=== PATIENT | male | born 1950 | race Caucasian/White ===

== ENCOUNTER 2024-04-21 11:55 | Outpatient (REF) | payer MEDICARE, SELFPAY ==
--- NOTE | ~2024-04-21 | XR_ITS ---
EXAMINATION: XR SHOULDER, RIGHT CLINICAL INFORMATION: Right shoulder pain. COMPARISON: None available. TECHNIQUE: AP and scapular Y views of the right shoulder. FINDINGS: Severe chronic humeral joint space narrowing with prominent bony remodeling. Subchondral cirrhosis and subchondral cystic change with large marginal osteophytes. Moderate acromioclavicular arthritis. Inferior ossified loose body measuring up to 0.6 cm. No acute fracture or dislocation. XR/XR shoulder RT min 2V IMPRESSION: 1. Severe glenohumeral osteoarthritis with prominent bony remodeling. Inferior loose body measuring up to 0.6 cm. 2. Moderate acromioclavicular osteoarthritis. Electronically signed by: Jesus Couch MD 05/18/2024 12:12 PM EDT
== END 2024-04-21 11:56 | disposition home or self-care (01) ==
LOC: HO.HOSX 11:55
PROVIDERS: Visit Provider Orthopaedic Surgery
DX: M25.511 Pain in right shoulder (principal); M19.011 Primary osteoarthritis, right shoulder
CPT/HCPCS: 20610; 73030; J1010

== ENCOUNTER 2024-04-21 13:24 | Outpatient (AMB) | payer OTHER, SELFPAY ==
--- NOTE | 2024-04-21 14:36 | MHC.OFFVIS ---
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 Pt states the pain started years ago with no known injury and has just been progressively getting worse. Pt denies any previous surgeries or injections in his shoulder. He has tried Tylenol and anti-inflammatory medicines which gave minimal relief. He has also done physical therapy exercises which aggravated his pain. Allergies Penicillins Allergy (Intermediate, Verified 04/21/24 14:37) Nausea Medication List - Last Reconciled 04/22/24 by Adrian Chung MD No Known Home Meds Physical Exam Const Other: Well-nourished well-developed very friendly male awake alert and oriented x3 in no acute distress Extrem Other: Bilateral upper extremity examination shows good capillary refill, no skin lesions noted, normal sensation light touch Right shoulder examination shows decreased active and passive range of motion when compared to his left shoulder, 4+ out of 5 strength with supraspinatus testing, palpable crepitus with range of motion, no instability, positive impingement signs Office Procedures Joint Injection/Aspiration Joint Injection/Aspiration Primary Site: right shoulder Prep: site was prepped using aseptic technique Injected: 40 mg of, DepoMedrol and 1% plain lidocaine Procedure: The patient tolerated the procedure well Coding 18741 - Large joint Procedure code (CPT) selection complete Results Reviewed Results Reviewed: X-rays of the patient's right shoulder show moderate to severe glenohumeral joint narrowing, subchondral sclerosis, a type 2 acromion, no acute bony abnormalities Assessment & Plan Assessment & Plan (1) Right shoulder pain: Code(s): M25.511 - Pain in right shoulder Category: Medical Plan Mr. Morataya presents with progressively worsening right shoulder pain and stiffness due to glenohumeral joint arthritis and impingement syndrome. I had a lengthy discussion with the patient regarding the treatment options. The risks and benefits of a right shoulder cortisone injection were discussed at length with the patient. The patient wished to proceed. He tolerated the injection well. Will continue with his home stretching program. He will follow up with me on an as-needed basis should his symptoms not improve over the next few months. I spent 21 minutes in reviewing the patient's records and imaging studies, seeing the patient and documenting in the medical record. Orders: Orders XR shoulder RT min 2V 04/21/24 M25.511 - Pain in right shoulder AMB Joint Injection/Aspiration 04/21/24 M25.511 - Pain in right shoulder Coding Level of Care Code New Pt Level 3 (05122) Diagnoses Right shoulder pain M25.511 CPT Codes Coding - Large joint: 77001 - Large joint ([id number])
== END 2024-04-21 15:01 | disposition home or self-care (01) ==
PROVIDERS: Visit Provider Orthopaedic Surgery
DX: M25.511 Pain in right shoulder (principal)
CPT/HCPCS: 20610; 99203

== ENCOUNTER 2024-05-12 09:25 | Outpatient (REF) | payer MEDICARE, SELFPAY ==
--- NOTE | ~2024-05-12 | XR_ITS ---
EXAMINATION: XR KNEE, RIGHT CLINICAL INFORMATION: Right knee pain. COMPARISON: None available. TECHNIQUE: Three views of the right knee. FINDINGS: Severe medial compartment joint space narrowing with bony remodeling and subchondral sclerosis. Tricompartmental marginal osteophytes. Medial and lateral compartment chondrocalcinosis. Medial ossified loose bodies measuring 0.7 and 0.4 cm. Moderate joint effusion. Atherosclerotic calcifications. No fracture or dislocation. XR/XR knee RT 3V IMPRESSION: 1. Tricompartmental osteoarthritis, most severe within the medial compartment. 2. Medial and lateral compartment chondrocalcinosis. Medial and lateral ossified loose bodies. Moderate joint effusion. Electronically signed by: Jesus Couch MD 05/18/2024 12:10 PM EDT
== END 2024-05-12 09:26 | disposition home or self-care (01) ==
LOC: HO.HOSX 09:25
PROVIDERS: Visit Provider Orthopaedic Surgery
DX: M25.561 Pain in right knee (principal); M17.11 Unilateral primary osteoarthritis, right knee
CPT/HCPCS: 20610; 73562; J1010

== ENCOUNTER 2024-05-12 12:55 | Outpatient (AMB) | payer OTHER, SELFPAY ==
--- NOTE | 2024-05-12 13:37 | MHC.OFFVIS ---
Intake Visit Reasons: New prob- Right Knee pain Intake Note: Mr. Morataya is a 74-year-old male who presents with complaints of progressively worsening right knee pain. The patient did undergo left total knee replacement surgery several years ago performed by another provider. He reports minimal discomfort in his left knee. He describes his right knee pain as sharp and severe in nature. His right knee pain has gotten worse over the last few years in spite of continued non operative treatments. He has tried Tylenol, anti-inflammatory medicines and topical creams which gave him minimal relief. He denies any locking or giving way. He has done physical therapy exercises which aggravated his pain. He wishes to hold off on right total knee replacement surgery for as long as possible. Allergies Penicillins Allergy (Intermediate, Verified 05/12/24 13:49) Nausea Medication List - Last Reconciled 05/12/24 by Adrian Chung MD No Known Home Meds [facility] Surgical History (Updated 05/12/24 @ 13:55 by Lizet Mauricio Anson) History of left knee replacement Physical Exam Const Other: Well-nourished well-developed very friendly male awake alert and oriented x3 in no acute distress Extrem Other: Bilateral lower extremity examination shows good capillary refill, no skin lesions noted, normal sensation light touch Right knee examination shows a minimal effusion, palpable crepitus with range of motion, pain with range of motion, range of motion from -3 degrees to 115 degrees, no instability Office Procedures Joint Injection/Aspiration Joint Injection/Aspiration Primary Site: right knee Prep: site was prepped using aseptic technique Injected: 40 mg of, DepoMedrol and 1% plain lidocaine Procedure: The patient tolerated the procedure well Coding 95818 - Large joint Procedure code (CPT) selection complete Results Reviewed Results Reviewed: X-rays of the patient's right knee show severe degenerative joint disease with joint space narrowing, subchondral sclerosis, osteophyte formation, no acute bony abnormalities Assessment & Plan Assessment & Plan (1) Arthritis of right knee: Code(s): M17.11 - Unilateral primary osteoarthritis, right knee Category: Medical Plan Mr. Morataya presents with progressively worsening right knee pain due to osteoarthritis. I had a lengthy discussion with the patient regarding the treatment options. The risks and benefits of a right knee cortisone injection were discussed at length with the patient. The patient wished to proceed. He tolerated the injection well. He will continue with his activity modifications. He will contact me prior to his follow-up appointment in 3 months should any questions or concerns arise. Feel free to call me at any time should questions regarding his orthopedic management arise. I spent 21 minutes in reviewing the patient's records and imaging studies, seeing the patient and documenting in the medical record. Orders: Orders XR knee RT 3V 05/12/24 M25.561 - Pain in right knee AMB Joint Injection/Aspiration 05/12/24 M17.11 - Unilateral primary osteoarthritis, right knee Coding Level of Care Code Est Pt Level 3 (08253) Complex EM visit Add On G2211 Diagnoses Arthritis of right knee M17.11 CPT Codes Coding - 34926 Large joint: 38107 - Large joint ([id number])
== END 2024-05-12 14:43 | disposition home or self-care (01) ==
PROVIDERS: PCP Internal Medicine; Visit Provider Orthopaedic Surgery
DX: M17.11 Unilateral primary osteoarthritis, right knee (principal)
CPT/HCPCS: 20610; 99213

== ENCOUNTER 2024-08-29 10:59 | Outpatient (AMB) | payer MEDICARE, SELFPAY ==
--- NOTE | 2024-08-29 11:03 | MHC.OFFVIS ---
Vital Signs 08/29/24 11:21 Height 5 ft 7 in Weight 205 lb BMI 32.1 Intake Visit Reasons: Right knee pain Intake Note: Adolfo is a 74 year old male who presents with complaints of progressively worsening right knee pain. He describes his pain as sharp and severe in nature. He has had cortisone injections which gave him minimal relief. He has not had a viscosupplementation injection. He has failed the last 3 months of conservative treatment which has consisted of a cortisone injection, physical therapy exercises, topical creams, Tylenol and anti-inflammatory medicines. The patient states that at this point his right knee pain is interfering with his activities of daily living and his ability to sleep well through the night. The patient is considering undergoing right total knee replacement surgery next year if he continues to fail non operative treatments. Allergies Penicillins Allergy (Intermediate, Verified 08/29/24 11:03) Nausea Medication List - Last Reconciled 08/29/24 by Adrian Chung MD No Known Home Meds [facility] Surgical History (Updated 05/12/24 @ 13:55 by NANCY Toledo) History of left knee replacement Physical Exam Vital Signs: BMI result Body Mass Index 32.1 Const Other: Well-nourished well-developed very friendly male awake alert and oriented x3 in no acute distress Extrem Other: Bilateral lower extremity examination shows good capillary refill, no skin lesions noted, normal sensation light touch Right knee examination shows a minimal effusion, palpable crepitus with range of motion, pain with range of motion, range of motion from -3 degrees to 115 degrees, no instability Results Reviewed Results Reviewed: X-rays of the patient's right knee taken previously show joint space narrowing, subchondral sclerosis, no acute bony abnormalities Assessment & Plan Assessment & Plan (1) Right knee pain: Code(s): M25.561 - Pain in right knee Category: Medical (2) Osteoarthritis of right knee: Code(s): M17.11 - Unilateral primary osteoarthritis, right knee Category: Medical Plan Mr. Morataya presents with progressively worsening right knee pain due to osteoarthritis. I had a lengthy discussion with the patient regarding the treatment options. He wishes to hold off on total knee replacement surgery for now. He has had cortisone injections in the past. The most recent injection gave him no relief. I will see whether or not the patient's insurance company will cover a viscosupplementation injection. I will see him back once the injection is available. If he fails continued non operative treatments we will further discuss the risks and benefits of right total knee replacement surgery. Feel free to call me at any time should questions regarding his orthopedic management arise. I spent 20 minutes in reviewing the patient's records and imaging studies, seeing the patient and documenting in the medical record. Coding Level of Care Code Est Pt Level 3 (63315) Complex EM visit Add On G2211 Diagnoses Right knee pain M25.561 Osteoarthritis of right knee M17.11
[2024-08-29 11:21] VITALS: BMI 32.1
== END 2024-08-29 11:47 | disposition home or self-care (01) ==
PROVIDERS: PCP Internal Medicine; Visit Provider Orthopaedic Surgery
DX: M25.561 Pain in right knee (principal); M17.11 Unilateral primary osteoarthritis, right knee
CPT/HCPCS: 99213; G2211

== ENCOUNTER → 2024-08-29 10:59 | Outpatient (BNVA) | payer MEDICARE, SELFPAY | PROVIDERS: PCP Internal Medicine; Visit Provider Orthopaedic Surgery | DX: M25.561 Pain in right knee (principal); M17.11 Unilateral primary osteoarthritis, right knee | CPT/HCPCS: 99212 ==

== ENCOUNTER 2024-09-12 10:32 | Outpatient (AMB) | payer MEDICARE, SELFPAY ==
[2024-09-12 10:37] VITALS: BMI 32.1
--- NOTE | 2024-09-12 10:37 | A.OFFVIS_ITS ---
Vital Signs 09/12/24 10:37 Height 5 ft 7 in Weight 205 lb BMI 32.1 Intake Visit Reasons: Right shoulder pain Intake Note: Adolfo is a 74 year old male who presents with complaints of progressively worsening right shoulder pain. He describes his pain as sharp in nature. Most of the pain is along the lateral aspect of his shoulder. He has had cortisone injections in the past which gave him fairly good relief. He has done physical therapy exercises which aggravated his pain. He has also tried Tylenol and anti-inflammatory medicines which gave him minimal relief. Wishes to hold off on right shoulder surgery for as long as possible. Allergies Penicillins Allergy (Intermediate, Verified 09/12/24 10:38) Nausea Medication List - Last Reconciled 09/12/24 by Adrian Chung MD No Known Home Meds [facility] Surgical History (Updated 05/12/24 @ 13:55 by NANCY Toledo) History of left knee replacement Physical Exam Vital Signs: BMI result Body Mass Index 32.1 Const Other: Well-nourished well-developed very friendly male awake alert and oriented x3 in no acute distress Extrem Other: Bilateral upper extremity examination shows good capillary refill, no skin lesions noted, normal sensation light touch Right shoulder examination shows decreased range of motion when compared to his left shoulder, 4+ out of 5 strength with supraspinatus testing, positive impingement signs, no instability Office Procedures AMB Joint Injection/Aspiration Joint Injection/Aspiration Primary Site: right shoulder Prep: site was prepped using aseptic technique Injected: 40 mg of, DepoMedrol and 1% plain lidocaine Procedure: The patient tolerated the procedure well Coding 78861 - Large joint Procedure code (CPT) selection complete Assessment & Plan Assessment & Plan (1) Right shoulder pain: Code(s): M25.511 - Pain in right shoulder Category: Medical (2) Arthritis of right shoulder region: Code(s): M19.011 - Primary osteoarthritis, right shoulder Category: Medical Plan Mr. Morataya presents with right shoulder pain due to impingement syndrome and glenohumeral joint arthritis. The risks and benefits of a right shoulder cortisone injection were discussed at length with the patient. The patient wished to proceed. He tolerated the injection well. He will continue with his home stretching program. Will contact me prior to his follow-up appointment in 3 months should any questions or concerns arise. Feel free to call me at any time should questions regarding his orthopedic management arise. I spent 20 minutes in reviewing the patient's records and imaging studies, seeing the patient and documenting in the medical record. Orders: Orders AMB Joint Injection/Aspiration Today M19.011 - Primary osteoarthritis, right shoulder Coding Level of Care Code Est Pt Level 3 (97296) Complex EM visit Add On G2211 Diagnoses Right shoulder pain M25.511 Arthritis of right shoulder region M19.011 CPT Codes Coding - 31449 Large joint: 44886 - Large joint ([id number])
== END 2024-09-12 11:21 | disposition home or self-care (01) ==
PROVIDERS: PCP Internal Medicine; Visit Provider Orthopaedic Surgery
DX: M19.011 Primary osteoarthritis, right shoulder (principal)
CPT/HCPCS: 20610; 99213

== ENCOUNTER → 2024-09-12 10:32 | Outpatient (BNVA) | payer MEDICARE, SELFPAY | PROVIDERS: PCP Internal Medicine; Visit Provider Orthopaedic Surgery | DX: M25.511 Pain in right shoulder (principal); M19.011 Primary osteoarthritis, right shoulder | CPT/HCPCS: 20610; 99212; J1010; J2003 ==

== ENCOUNTER 2024-09-27 12:19 | Outpatient (AMB) | payer MEDICARE, SELFPAY ==
--- NOTE | 2024-09-27 12:41 | A.OFFVIS_ITS ---
Vital Signs 09/27/24 12:44 Height 5 ft 7 in Weight 208 lb BMI 32.6 Intake Visit Reasons: Right knee Euflexxa Gel Injection #1 Intake Note: Adolfo is a 74 year old male who presents with complaints of progressively worsening right knee pain. He describes his pain as sharp in nature. His pain has gotten worse over the last few years in spite of continued non operative treatments. He has had cortisone injections in the past which gave him minimal relief. He has failed the last 3 months of conservative treatment which has included Tylenol and anti-inflammatory medicines as well as physical therapy exercises. He wishes to hold off on surgery for as long as possible. Allergies Penicillins Allergy (Intermediate, Verified 09/27/24 12:45) Nausea Medication List - Last Reconciled 09/28/24 by Adrian Chung MD No Known Home Meds [facility] Surgical History (Updated 05/12/24 @ 13:55 by Lizet Mauricio Anson) History of left knee replacement Physical Exam Vital Signs: BMI result Body Mass Index 32.6 Const Other: Well-nourished well-developed very friendly male awake alert and oriented x3 in no acute distress Extrem Other: Bilateral lower extremity examination shows good capillary refill, no skin lesions noted, normal sensation light touch Right knee examination shows a minimal effusion, palpable crepitus with range of motion, pain with range of motion, no instability Office Procedures AMB Joint Injection/Aspiration Joint Injection/Aspiration Primary Site: right knee Prep: site was prepped using aseptic technique Injected: 20 mg of (Euflexxa viscosupplementation) and 1% plain lidocaine Procedure: The patient tolerated the procedure well Coding 90190 - Large joint Procedure code (CPT) selection complete Results Reviewed Results Reviewed: X-rays of the patient's right knee taken previously show joint space narrowing, subchondral sclerosis, no acute bony abnormalities Assessment & Plan Assessment & Plan (1) Osteoarthritis of right knee: Code(s): M17.11 - Unilateral primary osteoarthritis, right knee Category: Medical Plan Mr. Morataya presents with right knee pain due to osteoarthritis. The risks and benefits of a series of Euflexxa viscosupplementation injections were discussed at length with the patient. The patient wishes to proceed. He tolerated the 1st injection well. He will follow up next week as scheduled. Feel free to call me at any time should questions regarding his orthopedic management arise. I spent 22 minutes in reviewing the patient's records and imaging studies, seeing the patient and documenting in the medical record. Orders: Orders AMB Joint Injection/Aspiration 09/27/24 M17.11 - Unilateral primary osteoarthri tis, right knee Coding Level of Care Code Est Pt Level 3 (71872) Complex EM visit Add On G2211 Diagnoses Osteoarthritis of right knee M17.11 CPT Codes Coding - 91018 Large joint: 66176 - Large joint ([id number])
[2024-09-27 12:44] VITALS: BMI 32.6
== END 2024-09-27 13:01 | disposition home or self-care (01) ==
PROVIDERS: PCP Internal Medicine; Visit Provider Orthopaedic Surgery
DX: M17.11 Unilateral primary osteoarthritis, right knee (principal)
CPT/HCPCS: 20610; 99213

== ENCOUNTER → 2024-09-27 12:19 | Outpatient (BNVA) | payer MEDICARE, SELFPAY | PROVIDERS: PCP Internal Medicine; Visit Provider Orthopaedic Surgery | DX: M17.11 Unilateral primary osteoarthritis, right knee (principal) | CPT/HCPCS: 20610; 99212; J2003; J7323 ==

== ENCOUNTER → 2024-10-04 12:02 | Outpatient (BNVA) | payer MEDICARE, SELFPAY | PROVIDERS: PCP Internal Medicine; Visit Provider Orthopaedic Surgery | DX: M17.11 Unilateral primary osteoarthritis, right knee (principal) | CPT/HCPCS: 20610; J2003; J7323 ==

== ENCOUNTER → 2024-10-11 11:56 | Outpatient (BNVA) | payer MEDICARE, SELFPAY | PROVIDERS: PCP Internal Medicine; Visit Provider Orthopaedic Surgery | DX: M17.11 Unilateral primary osteoarthritis, right knee (principal) | CPT/HCPCS: 20610; J2003; J7323 ==

== ENCOUNTER → 2024-12-16 08:16 | Outpatient (BNVA) | payer MEDICARE, SELFPAY | PROVIDERS: PCP Internal Medicine | DX: Z01.818 Encounter for other preprocedural examination (principal) ==

== ENCOUNTER 2024-12-19 | Outpatient (REF) | payer MEDICARE, SELFPAY ==
--- OUTSIDE RECORDS SUMMARY | 2024-11-16 10:10 | XMS_ITS | Encounter Summary ---
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 He is , lives by himself [...] Care Team (Late st Contact Info) Description 07/04/2025 1:00 PM EDT Office Visit [facility] Hematology Oncology [address] [place] [address] Jennifer Millard MD [address] [place] [address] documented as of this encounter Procedures Procedure Name Priority Date/Time Associated Diagnosis Comments ..MISCELLANEOUS REFERENCE LAB TEST 07/04/2024 documented in this encounter Results * Miscellaneous reference lab test (07/04/2024) us Provider Onbase LAB BLOOD ORDERABLES Final Re sult documented in this encounter Visit Diagnoses Not on filedocumented in this encounter Care Teams Car Driver Relationship Specialty Start Date End Date Juanita Sunshine MD [address] [place] [phone] PCP - General Internal Medicine 07/04/21 documented as of this encounter
--- OUTSIDE RECORDS SUMMARY | 2024-11-16 10:10 | XMS_ITS | Clinical Summary ---
Author Organization [facility] [place] [address] Phone Care Team Providers Care Golf Club Weigher Name Role Phone Juanita Sunshine MD Primary Care Provider [phone] Social History Tobacco Use Types Packs/Day Years Used Date Smoking Tobacco: Never Assessed Sex and Gender Information Value Date Recorded Sex Assigned at Not on file Legal Sex Male 6:05 PM EST Gender Identity Not on file Sexual Orientation Not on file Obstetrics History Last Filed Vital Signs Vital Sign Reading [...] Mass Index 31.17 08/25/2023 1:12 PM EST Plan of Treatment Upcoming Encounters Date Type Department Care Team (Late st Contact Info) Description 07/04/2025 1:00 PM EDT Office Visit [facility] Hematology Oncology [address] [place] [phone] Jennifer Millard MD [address] [place] [address] Health Maintenance Due Date Last Done Comments COVID-19 Vaccine (#1) 1953 DTaP,Tdap,and Td Vaccines (1 - Tdap) 1967 Pneumococcal Vaccine: 50+ Ye ars (1 of 2 - PCV) 1967 Zoster Vaccines (1 of 2) 1967 Cholesterol Screening (Lipid Panel) 08/09/2022 Depression Screening 08/09/2022 Falls Risk Assessment 08/09/2022 Hepatitis C Screening 08/09/2022 Medicare Annual Wellness Visit 08/09/2022 Social Influencers of Health Screening 08/09/2022 RSV Immunization Patients 60 + Years Old (1 - 1-dose 75+ series) 2023 Influenza Vaccine (#1) 2024 HIB Vaccines Aged Out No longer eligi ble based on patient's age to complete this topic HPV Vaccines Aged Out No longer eligi ble based on patient's age to complete this topic Hepatitis A Vaccines Aged Out No long er eligible based on patient's age to complete this topic Hepatitis B Vaccines Aged Out No long er eligible based on patient's age to complete this topic IPV Vaccines Aged Out No longer eligi ble based on patient's age to complete this topic MMR Vaccines Aged Out No longer eligi ble based on patient's age to complete this topic Meningococcal ACWY Vaccine Aged Out N o longer eligible based on patient's age to complete this topic Meningococcal B Vacine Aged Out No lo nger eligible based on patient's age to complete this topic RSV Immunization Patients Un kenyatta 20 months Aged Out No longer eligible b ased on patient's age to complete this topic Varicella Vaccines Aged Out No longer eligible based on patient's age to complete this topic Insurance [employer] Care Teams Golf Club Weigher Relationship Specialty Start Date End Date Juanita Sunshine MD [address] [place] [phone] PCP - General Internal Medicine 07/04/21
--- OUTSIDE RECORDS SUMMARY | 2024-11-16 10:10 | XMS_ITS | Clinical Summary ---
Author Organization [facility] Address [address] [place] [address] Care Team Providers Care Ham Clerk Name Role Phone Juanita Sunshine MD Primary Care Provider [phone] Allergies Active Allergy Reactions Criticality Noted Date Comments Penicillins 07/04/2024 Medications No known medications Active Problems No known active problems Social History Tobacco Use Types Packs/Day Years Used Date Smoking Tobacco: Never Assessed Sex and Gender Information Value Date Recorded Sex Assigned at Male 02/24/2023 3:10 PM EDT Gender Identity Not on file Sexual Orientation Not on file Job Start Date Occupation Industry Not on file Not on file Not on file Last Filed Vital Signs Vital Sign Reading Time Taken Comments Blood Pressure 143/83 07/04/2024 1:05 PM EDT Pulse 74 07/04/2024 1:05 PM EDT Temperature 36.6 ??C (97.8 ??F) 07/04/2024 1:05 PM ED T Respiratory Rate - - Oxygen Saturation 97% 07/04/2024 1:05 PM EDT Inhaled Oxygen Concentration - - Weight 93 kg (205 lb) 07/04/2024 1:05 PM EDT Height 172.7 cm (5' 8 ) 08/25/2023 1:12 PM EST Body Mass Index 31.17 08/25/2023 1:12 PM EST Plan of Treatment Health Maintenance Due Date Last Done Comments Hepatitis C Screening 1950 COVID-19 Vaccine (#1) 1953 Depression Screening 1960 Preventative Health Evaluation 1966 DTap / Tdap / Td (1 - Tdap) 1967 Shingrix-Zoster Vaccine (1 o f 2) 1967 Fall Risk Assessment 2013 Pneumococcal Vaccine (2 of 2 - PPSV23 or PCV20) 08/01/2019 06/06/2019 RSV Adult > 60+ Yrs or (1 - 1-dose 75+ series) 2023 Influenza Vaccine (#1) 2024 1, 06/29/2019, 06/06/2019 Hepatitis B Vaccines Aged Out No long er eligible based on patient's age to complete this topic RSV Ped < 20 months Aged Out No longe r eligible based on patient's age to complete this topic Care Teams Ham Clerk Relationship Specialty Start Date End Date Juanita Sunshine MD [address] [place] [phone] PCP - General Internal Medicine 02/24/23
[2024-12-19 09:22] VITALS: BP 161/90; PULSE 61; RESP 16; O2SAT 97; BMI 33.2
[2024-12-19 11:56] LABS: MRSA Nasal PCR NEGATIVE (Negative); SA Nasal PCR NEGATIVE (Negative)
--- OUTSIDE RECORDS SUMMARY | 2025-03-03 14:14 | XMS_ITS | Clinical Summary ---
Author Organization [facility] [place] [address] Phone Care Team Providers Care Manager Culture Name Role Phone Juanita Sunshine MD Primary [...] Description 07/04/2025 1:00 PM EDT Office Visit [facility] Hematology Oncology [address] [place] [phone] Jennifer Millard MD [address] [place] [address] Health Maintenance Due Date Last Done Comments [...] topic Insurance [employer] Care Teams Manager Culture Relationship Specialty Start Date End Date Juanita Sunshine MD PCP - General Internal Medicine 07/04/21
== END 2024-12-19 00:01 | disposition home or self-care (01) ==
LOC: HO.PAT
PROVIDERS: Physician Assistant; PCP Family Medicine; Visit Provider Orthopaedic Surgery
DX: M17.11 Unilateral primary osteoarthritis, right knee (principal)
CPT/HCPCS: 87640; 87641

== ENCOUNTER 2025-01-05 08:59 | Outpatient (REF) | payer MEDICARE, SELFPAY ==
--- NOTE | ~2025-01-05 | XR_ITS ---
EXAMINATION: XR PELVIS 1-2 VIEWS HISTORY: M25.559 - Pain in unspecified hip COMPARISON: There are no prior studies for comparison. FINDINGS: Two AP views of the pelvis are submitted. Osseous mineralization is normal. There is no fracture or dislocation. There is severe osteoarthritis of the left hip with joint space narrowing and subchondral cyst formation. There is mild narrowing of the right hip joint. The sacroiliac joints are maintained. There is moderate degenerative disc disease of the lower lumbar spine. A mesh is seen in the left lower quadrant. XR/XR pelvis 1-2V IMPRESSION: Severe osteoarthritis of the left hip. Mild osteoarthritis of the right hip. Electronically signed by: Kody Harmon MD 01/06/2025 08:42 AM EDT
--- OUTSIDE RECORDS SUMMARY | 2025-01-05 09:39 | XMS_ITS | Encounter Summary ---
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 is , lives by himself [...] Description 07/04/2025 1:00 PM EDT Office Visit [facility] Hematology Oncology [address] [place] [address] Jennifer Millard MD [address] [place] [address] documented as of this encounter Procedures Procedure Name Priority Date/Time Associated Diagnosis Comments ..MISCELLANEOUS REFERENCE LAB TEST 07/04/2024 documented in this encounter Results * Miscellaneous reference lab test (07/04/2024) us Provider Onbase LAB BLOOD ORDERABLES Final Re sult documented in this encounter Visit Diagnoses Not on filedocumented in this encounter Care Teams Health Information Administrator Relationship Specialty Start Date End Date Juanita Sunshine MD [address] [place] [phone] PCP - General Internal Medicine 07/04/21 documented as of this encounter
--- OUTSIDE RECORDS SUMMARY | 2025-01-05 09:39 | XMS_ITS | Clinical Summary ---
Author Organization [facility] [place] [address] Phone Care Team Providers Care Electric Relay Tester Name Role Phone Juanita Sunshine MD Primary Care Provider [phone] Social History Tobacco Use Types Packs/Day Years [...] Description 07/04/2025 1:00 PM EDT Office Visit [facility] Hematology Oncology [address] [place] [phone] Jennifer Millard MD [address] [place] [address] Health Maintenance Due Date Last Done Comments [...] Influencers of Health Screening 08/09/2022 RSV Immunization Adult Patie nts (1 - 1-dose 75+ series) 2023 Influenza Vaccine (Season Ended) 2025 HIB Vaccines Aged Out No longer eligi [...] age to complete this topic Meningococcal B Vaccine Aged Out No l onger eligible based on patient's age to complete this topic RSV Immunization Patients Un keynatta 20 months Aged Out No longer eligible b ased on patient's age to complete this topic Varicella Vaccines Aged Out No longer eligible based on patient's age to complete this topic Insurance [employer] Care Teams Electric Relay Tester Relationship Specialty Start Date End Date Juanita Sunshine MD [address] [place] [phone] PCP - General Internal Medicine 07/04/21
--- OUTSIDE RECORDS SUMMARY | 2025-01-05 09:39 | XMS_ITS | Clinical Summary ---
Author Organization [facility] Address [address] [place] [address] Care Team Providers Care Manager Product Support Name Role Phone Juanita Sunshine MD Primary Care Provider [phone] Allergies Active Allergy Reactions Criticality Noted Date [...] age to complete this topic Care Teams Manager Product Support Relationship Specialty Start Date End Date Juanita Sunshine MD [address] [place] [phone] PCP - General Internal Medicine 02/24/23
== END 2025-01-05 09:00 | disposition home or self-care (01) ==
LOC: HO.HOSX 08:59
PROVIDERS: Visit Provider Orthopaedic Surgery
DX: M25.552 Pain in left hip (principal); M16.12 Unilateral primary osteoarthritis, left hip; Z86.718 Personal history of other venous thrombosis and embolism
CPT/HCPCS: 72170; 99212

== ENCOUNTER 2025-01-05 10:30 | Outpatient (AMB) | payer MEDICARE, SELFPAY ==
[2025-01-05 10:55] VITALS: BMI 32.6
--- NOTE | 2025-01-05 10:55 | A.OFFVIS_ITS ---
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 This is a patient of Dr. Dumont who is scheduled for a Right TKA 01/16/25. Patient reports that he has has left hip pain ongoing since Fall 2023. His pain is felt in the groin, he explains that this pain is worse than his pain in the knee. Pain is felt with ambulation and feels better at rest. He takes Ibuprofen which helped, but he had to stop for upcoming surgery. He is currently taking Acetaminophen instead which is helping. 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 This is a patient of Dr. Dumont who is scheduled for a Right TKA 01/16/25. Patient reports that he has has left hip pain ongoing since Fall 2023. His pain is felt in the groin, he explains that this pain is worse than his pain in the knee. Pain is felt with ambulation and feels better at rest. He takes Ibuprofen which helped, but he had to stop for upcoming surgery. He is currently taking Acetaminophen instead which is helping. He feels he can not get into and out of an automobile or walk long distances because of his left groin. His right knee is intermittently painful but the less he does the less it hurts. [facility] Medical History (Updated 01/05/25 @ 17:01 by Gus Sims MD) Postoperative nausea Cholelithiasis Aneurysm of gastroduodenal artery Lung nodule HTN (hypertension) Hx of deep venous thrombosis Bilateral shoulder pain Hyperlipidemia Low grade B-cell lymphoma Diverticulosis Self-catheterizes urinary bladder GERD (gastroesophageal reflux disease) BPH (benign prostatic hyperplasia) Anxiety and depression Numbness Osteoarthritis Surgical History (Updated 12/19/24 @ 09:21 by Joy Miranda RN) History of uvulectomy Hx of colonoscopy Hx of umbilical hernia repair (~1994) History of left knee replacement Social History (Updated 12/19/24 @ 10:13 by Joy Miranda RN) Household Members: None Housing: House Are you a primary behavioral health care manager to a significant other at home: No Do you presently have visiting nurse or other home services: No 75 years or older and lives alone: Yes Comment: aware of trip hazard Patient Tobacco Use Status: Never used Tobacco e-Cigarette/Vaping Use: Never Used Use of substances other than those prescribed or required for medical reasons: No Advance Directives: No Advance Directives Information Provided: Yes Advance Directives on File: No Healthcare Proxy: No Current occupational status: employed 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 He has a Trendelenburg gait on the left with severe limp. His right knee is tender to palpation medial compartment. Results Reviewed Results Reviewed: I personally reviewed relevant radiographs. There is moderate to severe left hip osteoarthritis with loss of joint space and subchondral sclerosis. Assessment & Plan Assessment & Plan (1) Osteoarthritis of left hip: Code(s): M16.12 - Unilateral primary osteoarthritis, left hip Category: Medical Plan: This is a 74-year-old gentleman with left hip arthritis. This is been causing him pain for almost 9 months. He feels he is unable to walk comfortably. He states quality of his life is diminished. He has a history of DVT and low-grade lymphoma so he is at risk for blood clots but I discussed with him the other risks surgery. Those risks include, but are not limited to, the risk of infection, fracture, dislocation, aseptic loosening as well as medical complications associated with surgery including blood clots, pulmonary emboli as well as pneumonia, urinary tract infections. After extended discussion with him and with Dr. Chung I think it is reasonable to proceed forward with a left hip replacement prior to knee arthroplasty. It is his left hip that is significantly affecting his daily life at this time and I think he would benefit from the procedure. He can barely walk and he agrees with our assessment and plan. He has been cleared medically to undergo a right knee replacement. We will perform a left hip replacement instead and then he will see Dr. Palma when he has recovered from that to discuss right knee replacement. (2) Hx of deep venous thrombosis: Comment: of iliac vein Code(s): Z86.718 - Personal history of other venous thrombosis and embolism Category: Medical Plan: Orders: Orders XR pelvis 1-2V Today M25.559 - Pain in unspecified hip Coding Level of Care Code Est Pt Level 4 (92259) Diagnoses Osteoarthritis of left hip M16.12 Hx of deep venous thrombosis Z86.718
--- OUTSIDE RECORDS SUMMARY | 2025-01-05 12:00 | XMS_ITS | Clinical Summary ---
Author Organization [facility] Address [address] [place] [address] Care Team Providers Care Finisher Accordion Name Role Phone Juanita Sunshine MD Primary Care Provider [phone] Allergies Active Allergy Reactions Criticality Noted Date [...] age to complete this topic Care Teams Finisher Accordion Relationship Specialty Start Date End Date Juanita Sunshine MD [address] [place] [phone] PCP - General Internal Medicine 02/24/23
--- OUTSIDE RECORDS SUMMARY | 2025-01-05 12:00 | XMS_ITS | Clinical Summary ---
Author Organization [facility] [place] [address] Phone Care Team Providers Care Candlemaker Name Role Phone Juanita Sunshine MD Primary Care Provider [phone] Social History Tobacco Use Types Packs/Day Years [...] Description 07/04/2025 1:00 PM EDT Office Visit [facility] Hematology Oncology [address] [place] [phone] Jennifer Millard MD [address] [place] [address] Health Maintenance Due Date Last Done Comments [...] topic Insurance [employer] Care Teams Candlemaker Relationship Specialty Start Date End Date Juanita Sunshine MD [address] [place] [phone] PCP - General Internal Medicine 07/04/21
--- OUTSIDE RECORDS SUMMARY | 2025-01-05 12:00 | XMS_ITS | Encounter Summary ---
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 , lives by himself [...] Description 07/04/2025 1:00 PM EDT Office Visit [facility] Hematology Oncology [address] [place] [address] Jennifer Millard MD [address] [place] [address] documented as of this encounter Procedures Procedure Name Priority Date/Time Associated Diagnosis Comments ..MISCELLANEOUS REFERENCE LAB TEST 07/04/2024 documented in this encounter Results * Miscellaneous reference lab test (07/04/2024) us Provider Onbase LAB BLOOD ORDERABLES Final Re sult documented in this encounter Visit Diagnoses Not on filedocumented in this encounter Care Teams Nibbler Operator Relationship Specialty Start Date End Date Juanita Sunshine MD [address] [place] [phone] PCP - General Internal Medicine 07/04/21 documented as of this encounter
== END 2025-01-05 11:31 | disposition home or self-care (01) ==
LOC: HO.HOS 10:30
PROVIDERS: PCP Internal Medicine; Visit Provider Orthopaedic Surgery
DX: M16.12 Unilateral primary osteoarthritis, left hip (principal); Z86.718 Personal history of other venous thrombosis and embolism
CPT/HCPCS: 99214

== ENCOUNTER → 2025-01-05 10:36 | Outpatient (BNV) | payer MEDICARE, SELFPAY | PROVIDERS: Visit Provider Radiology Diagnostic Radiology | DX: M25.551 Pain in right hip (principal) | CPT/HCPCS: 72170 ==

== ENCOUNTER 2025-01-12 08:16 | Outpatient (AMB) | payer MEDICARE, SELFPAY ==
--- OUTSIDE RECORDS SUMMARY | 2025-01-12 08:34 | XMS_ITS | Clinical Summary ---
Author Organization [facility] [place] [address] Phone Care Team Providers Care Edge Blacker Name Role Phone Juanita Sunshine MD Primary Care Provider [phone] Social History Tobacco Use Types Packs/Day Years [...] Description 07/04/2025 1:00 PM EDT Office Visit [facility] Hematology Oncology [address] [place] [phone] Jennifer Millard MD [address] [place] [address] Health Maintenance Due Date Last Done Comments [...] topic Insurance [employer] Care Teams Edge Blacker Relationship Specialty Start Date End Date Juanita Sunshine MD [address] [place] [phone] PCP - General Internal Medicine 07/04/21
--- OUTSIDE RECORDS SUMMARY | 2025-01-12 08:34 | XMS_ITS | Clinical Summary ---
Author Organization [facility] Address [address] [place] [address] Care Team Providers Care Infrastructure Technician Name Role Phone Juanita Sunshine MD Primary Care Provider [phone] Allergies Active Allergy Reactions Criticality Noted Date [...] age to complete this topic Care Teams Infrastructure Technician Relationship Specialty Start Date End Date Juanita Sunshine MD [address] [place] [phone] PCP - General Internal Medicine 02/24/23
--- OUTSIDE RECORDS SUMMARY | 2025-01-12 08:34 | XMS_ITS | Encounter Summary ---
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 [...] 07/04/2025 1:00 PM EDT Office Visit [facility] Hematology Oncology [address] [place] [address] Jennifer Millard MD [address] [place] [address] documented as of this encounter Procedures Procedure Name Priority Date/Time Associated Diagnosis Comments ..MISCELLANEOUS REFERENCE LAB TEST 07/04/2024 documented in this encounter Results * Miscellaneous reference lab test (07/04/2024) us Provider Onbase LAB BLOOD ORDERABLES Final Re sult documented in this encounter Visit Diagnoses Not on filedocumented in this encounter Care Teams Press Set Up Person Relationship Specialty Start Date End Date Juanita Sunshine MD [address] [place] [phone] PCP - General Internal Medicine 07/04/21 documented as of this encounter
--- NOTE | 2025-01-12 08:35 | MHC.OFFVIS ---
Vital Signs 01/12/25 08:45 Height 5 ft 7 in Weight 208 lb BMI 32.6 Intake Visit Reasons: Pre-Op: L RAY w/NE 01/17/25 Intake Note: Adolfo is a 74 year old male who presents today for a preoperative left RAY on 01/17/25 NE. Pain management agreement reviewed and signed. Allergies Penicillins Allergy (Intermediate, Verified 01/12/25 08:46) Nausea HPI Comments Details: Mr Morataya presents to the office today for preop visit. He is scheduled for left total hip arthroplasty with Dr. Sims. He continues to have ongoing pain and difficulty with ambulation in the left hip, which is affecting his quality of life; therefore, he has elected to move forward with surgery. He is at an increased risk for DVT due to Abd. aneurysm and h/o DVT H/o Lovenox with previous TKA [facility] Medical History (Updated 01/05/25 @ 17:01 by Gus Sims MD) Postoperative nausea Cholelithiasis Aneurysm of gastroduodenal artery Lung nodule HTN (hypertension) Hx of deep venous thrombosis Bilateral shoulder pain Hyperlipidemia Low grade B-cell lymphoma Diverticulosis Self-catheterizes urinary bladder GERD (gastroesophageal reflux disease) BPH (benign prostatic hyperplasia) Anxiety and depression Numbness Osteoarthritis Surgical History History of uvulectomy Hx of colonoscopy Hx of umbilical hernia repair (~1994) History of left knee replacement Social History Household Members: None Housing: House Are you a primary home care associate to a significant other at home: No Do you presently have visiting nurse or other home services: No 75 years or older and lives alone: Yes Comment: aware of trip hazard Patient Tobacco Use Status: Never used Tobacco e-Cigarette/Vaping Use: Never Used Current occupational status: employed 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 He has positive impingement and positive Stinchfield test on the left. He has a Trendelenburg gait on the left with severe limp. His right knee is tender to palpation medial compartment. Results Reviewed Results Reviewed: Xrays were obtained in the office today and personally reviewed by me of the left hip for surgical planning Assessment & Plan Assessment & Plan (1) Osteoarthritis of left hip: Code(s): M16.12 - Unilateral primary osteoarthritis, left hip Category: Medical Plan: I discussed in detail the procedure and what to expect pre and post operatively. We discussed the risks, benefits and alternatives to the surgery as well as the rehabilitation course. The risks; which include, but are not limited to infection, bleeding, nerve injury, ongoing pain, swelling, and stiffness, perioperative risk of injury to bones and soft tissues, and blood clots. His plan is to D/C home with VNA He was given an order for PT to make an appt after 02/02/25 at a facility closer to home. He will take Lovenox 40mg subQ q24hr x6 weeks for dvt ppx I?ve answered all questions and with their understanding they have consented to move forward with Left total hip arthroplasty with Dr. Sims Orders: Orders XR hip LT min 2V Today M25.552 - Pain in left hip Complete Blood Count Auto Diff Today Z01.818 - Encounter for other preprocedural examination Basic Metabolic Panel Today Z01.818 - Encounter for other preprocedural examination PT Evaluation and Treatment Today Z96.642 - Presence of left artificial hip joint Coding Level of Care Code Est Pt Level 3 (60504) Complex EM visit Add On G2211 Diagnoses Osteoarthritis of left hip M16.12
[2025-01-12 08:45] VITALS: BMI 32.6
== END 2025-01-12 09:39 | disposition home or self-care (01) ==
LOC: HO.HOS 08:17
PROVIDERS: PCP Internal Medicine; Visit Provider Physician Assistant
DX: M16.12 Unilateral primary osteoarthritis, left hip (principal)
CPT/HCPCS: 99024

== ENCOUNTER → 2025-01-12 08:18 | Outpatient (BNV) | payer MEDICARE, SELFPAY | PROVIDERS: Visit Provider Radiology Diagnostic Radiology | DX: M16.12 Unilateral primary osteoarthritis, left hip (principal) | CPT/HCPCS: 73502 ==

== ENCOUNTER 2025-01-12 09:54 | Outpatient (REF) | payer MEDICARE, SELFPAY ==
--- NOTE | ~2025-01-12 | XR_ITS ---
EXAMINATION: XR HIP 2 OR MORE VIEWS LEFT HISTORY: M25.552 - Pain in left hip COMPARISON: Comparison is made with the prior examination of the pelvis dated 01/05/2025. FINDINGS: A single AP view of the pelvis and two views of the left hip are submitted. Osseous mineralization is normal. There is no fracture or dislocation. There is severe osteoarthritis with joint space narrowing and subchondral cyst formation. The soft tissues are unremarkable. There is degenerative disc disease of the lower lumbar spine. XR/XR hip LT min 2V IMPRESSION: Severe osteoarthritis of the left hip. Electronically signed by: Kody Harmon MD 01/12/2025 08:50 AM EDT
--- OUTSIDE RECORDS SUMMARY | 2025-01-17 10:44 | XMS_ITS | Clinical Summary ---
Author Organization [facility] [place] [address] Phone Care Team Providers Care Net Developer Contract Name Role Phone Juanita Sunshine MD Primary Care Provider [phone] Social History Tobacco Use Types Packs/Day Years [...] Description 07/04/2025 1:00 PM EDT Office Visit [facility] Hematology Oncology [address] [place] [phone] Jennifer Millard MD [address] [place] [address] Health Maintenance Due Date Last Done Comments [...] topic Insurance [employer] Care Teams Net Developer Contract Relationship Specialty Start Date End Date Juanita Sunshine MD [address] [place] [phone] PCP - General Internal Medicine 07/04/21
--- OUTSIDE RECORDS SUMMARY | 2025-01-17 10:44 | XMS_ITS | Clinical Summary ---
Author Organization [facility] Address [address] [place] [address] Care Team Providers Care Improvement Coordinator Name Role Phone Juanita Sunshine MD Primary Care Provider [phone] Allergies Active Allergy Reactions Criticality Noted Date [...] age to complete this topic Care Teams Improvement Coordinator Relationship Specialty Start Date End Date Juanita Sunshine MD [address] [place] [phone] PCP - General Internal Medicine 02/24/23
--- OUTSIDE RECORDS SUMMARY | 2025-01-17 10:44 | XMS_ITS | Encounter Summary ---
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 He is , lives by himself [...] Visit [facility] Hematology Oncology [address] [place] [phone] Jennifer Millard MD [address] [place] [address] documented as of this encounter Procedures Procedure Name Priority Date/Time Associated Diagnosis Comments ..MISCELLANEOUS REFERENCE LAB TEST 07/04/2024 documented in this encounter Results * Miscellaneous reference lab test (07/04/2024) us Provider Onbase LAB BLOOD ORDERABLES Final Re sult documented in this encounter Visit Diagnoses Not on filedocumented in this encounter Care Teams Wood Lather Relationship Specialty Start Date End Date Juanita Sunshine MD [address] [place] [phone] PCP - General Internal Medicine 07/04/21 documented as of this encounter
== END 2025-01-12 09:55 | disposition home or self-care (01) ==
LOC: HO.HOSX 09:54
PROVIDERS: Visit Provider Physician Assistant
DX: Z01.818 Encounter for other preprocedural examination (principal); M16.12 Unilateral primary osteoarthritis, left hip; M25.552 Pain in left hip; Z86.718 Personal history of other venous thrombosis and embolism; Z79.01 Long term (current) use of anticoagulants
CPT/HCPCS: 73502; 99212

== ENCOUNTER 2025-01-17 07:36 | Day surgery (SDC) | payer MEDICARE, SELFPAY ==
--- OUTSIDE RECORDS SUMMARY | 2025-01-11 09:21 | XMS_ITS | Encounter Summary ---
Author Organization [facility] Address [address] [place] [address] Care Team Providers Care Concrete Engineer Name Role Phone Juanita Sunshine MD Primary Care Provider [phone] Encounter Details Date Type Department Care Team (Late st Contact Info) Description 07/04/2024 12:43 PM EDT Hospital Encounter TH HISTORIC ENCOUNTERS EASTERN CONVERSION ONLY Jennifer Millard MD [address] [place] [phone] Social History Tobacco Use Types Packs/Day Years [...] 07/04/2024 1:00 PM EDT CHIEF COMPLAINT: Follow-up IDENTIFIER:dAolfo Morataya is a 74 y.o. male. 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 [...] Description 07/04/2025 1:00 PM EDT Office Visit [facility] Hematology Oncology [address] [place] [address] Jennifer Millard MD [address] [place] [address] documented as of this encounter Procedures Procedure Name Priority Date/Time Associated Diagnosis Comments ..MISCELLANEOUS REFERENCE LAB TEST 07/04/2024 documented in this encounter Results * Miscellaneous reference lab test (07/04/2024) us Provider Onbase LAB BLOOD ORDERABLES Final Re sult documented in this encounter Visit Diagnoses Not on filedocumented in this encounter Care Teams Concrete Engineer Relationship Specialty Start Date End Date Juanita Sunshine MD [address] [place] [phone] PCP - General Internal Medicine 07/04/21 documented as of this encounter
--- OUTSIDE RECORDS SUMMARY | 2025-01-11 09:21 | XMS_ITS | Clinical Summary ---
Author Organization [facility] [place] [address] Phone Care Team Providers Care Medical Appointment Clerk Name Role Phone Juanita Sunshine MD Primary Care Provider [phone] Social History Tobacco Use Types Packs/Day Years [...] Description 07/04/2025 1:00 PM EDT Office Visit [facility] Hematology Oncology [address] [place] [phone] Jennifer Millard MD [address] [place] [address] Health Maintenance Due Date Last Done Comments [...] topic Insurance [employer] Care Teams Medical Appointment Clerk Relationship Specialty Start Date End Date Juanita Sunshine MD [address] [place] [phone] PCP - General Internal Medicine 07/04/21
--- OUTSIDE RECORDS SUMMARY | 2025-01-11 09:21 | XMS_ITS | Clinical Summary ---
Author Organization [facility] Address [address] [place] [address] Care Team Providers Care Medical Surgery Nurse Name Role Phone Juanita Sunshine MD Primary Care Provider [phone] Allergies Active Allergy Reactions Criticality Noted Date [...] age to complete this topic Care Teams Medical Surgery Nurse Relationship Specialty Start Date End Date Juanita Sunshine MD [address] [place] [phone] PCP - General Internal Medicine 02/24/23
[2025-01-12 10:08] LABS: MANUAL DIFF FLAG NO
[2025-01-12 10:55] LABS: Basophils Percent Auto 0.3 % (0-2); Eosinophils Absolute Auto 0.1 X10*3/uL (0.0-0.4); Eosinophils Percent Auto 1.4 % (0-4); Hematocrit 43.9 % (42.0-52.0); Hemoglobin 14.2 g/dl (14.0-18.0); Imm Gran Abs Auto 0.04 X10*3/uL (0.00-0.03); Imm Gran Pct Auto 0.4 % (0.0-0.4); Lymphocytes Absolute Auto 1.4 X10*3/uL (1.2-4.9); Lymphocytes Percent Auto 15.1 % (20-40); Mean Corpuscular HGB Conc 32.3 g/dl (31.0-36.0); Mean Corpuscular Volume 83.5 fL (80.0-98.0); Mean Platelet Volume 9.3 fL (9.4-12.4); Monocytes Absolute Auto 0.7 X10*3/uL (0.1-1.2); Neutrophils Absolute Auto 6.9 x10*3/uL (2.0-8.3); Neutrophils Percent Auto 74.8 % (45-73); Platelet Count 312 X10*3/uL (160-400); Red Blood Count 5.26 X10*6/uL (4.60-5.80); White Blood Count 9.3 X10*3/uL (4.8-10.8)
[2025-01-12 11:27] LABS: Anion Gap 12 (12-20); Blood Urea Nitrogen 20 mg/dL (9-16); Calcium 9.3 mg/dL (8.4-10.2); Carbon Dioxide 26 mmol/L (22-29); Chloride 106 mmol/L (96-108); Estimated Glomerular Filt Rate > 60; Glucose Random 87 mg/dL (60-115); Potassium 3.9 mmol/L (3.3-5.1); Sodium 140 mmol/L (135-145)
--- NOTE | 2025-01-16 12:39 | HO.ANESPROP2 ---
Documented by User: Magali Perla NP 01/16/25 12:43 HPI - Anesthesia Eval Consult details Narrative: 74yo M for Left Hip Total Replacement Self cath 6 x daily PONV PMFSH Active Problems Active Problems: All Active Problems (Updated 01/05/25 @ 17:01 by Gus Sims MD) Hx of deep venous thrombosis (Acute) Osteoarthritis of left hip (Acute) Pre-op evaluation (Acute) Arthritis of right shoulder region (Acute) Osteoarthritis of right knee (Acute) Arthritis of right knee (Acute) Right knee pain (Acute) Right shoulder pain (Acute) Past Medical History Medical History Postoperative nausea Cholelithiasis Aneurysm of gastroduodenal artery Lung nodule HTN (hypertension) Hx of deep venous thrombosis Bilateral shoulder pain Hyperlipidemia Low grade B-cell lymphoma Diverticulosis Self-catheterizes urinary bladder GERD (gastroesophageal reflux disease) BPH (benign prostatic hyperplasia) Anxiety and depression Numbness Osteoarthritis Surgical History Surgical History History of uvulectomy Hx of colonoscopy Hx of umbilical hernia repair (~1994) History of left knee replacement Social History Social History Household Members: None Housing: House Are you a primary dialysis patient care technician to a significant other at home: No Do you presently have visiting nurse or other home services: No Comment: aware of trip hazard Patient Tobacco Use Status: Never used Tobacco e-Cigarette/Vaping Use: Never Used Have you been hit, kicked, punched, or otherwise hurt by someone within the past year? 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 Allergies Allergy/AdvReac Type Severity Reaction Status Date / Time Penicillins Allergy Intermediate Nausea Verified 01/12/25 08:46 Home Medications ?Medication ?Instructions ?Recorded ?Confirmed ?Last Taken ?Type ibuprofen 200 mg tablet 800 mg PO Q8H PRN Pain 12/16/24 01/17/25 01/05/25 History Hemp Oil 1 drp PO DAILY 12/19/24 01/17/25 01/05/25 History Methyline Blue 3 drp PO DAILY 12/19/24 01/17/25 01/05/25 History calcium carbonate (Tums) 200 mg PO QID PRN Acid Reflux 12/19/24 01/17/25 01/05/25 History Exam Pertinent Lab Results Pertinent Lab Results: Laboratory Tests 01/12/25 01/12/25 09:55 10:07 WBC 9.3 RBC 5.26 Hgb 14.2 Hct 43.9 MCV 83.5 MCH 27.0 MCHC 32.3 RDW 15.0 Plt Count 312 MPV 9.3 L Immature Gran % (Auto) 0.4 Neut % (Auto) 74.8 H Lymph % (Auto) 15.1 L Josephine % (Auto) 8.0 Eos % (Auto) 1.4 Baso % (Auto) 0.3 Lymph # (Auto) 1.4 Josephine # (Auto) 0.7 Eos # (Auto) 0.1 Baso # (Auto) 0.0 Abs Immat Gran (auto) 0.04 H Absolute Neuts (auto) 6.9 Absolute Nucleated RBC 0.000 Nucleated RBC % (auto) 0.0 Sodium 140 Potassium 3.9 Chloride 106 Carbon Dioxide 26 Anion Gap 12 BUN 20 H Creatinine 1.02 Estim Creat Clear Calc TNP Estimated GFR > 60 Random Glucose 87 Calcium 9.3 Blood Type O Positive Antibody Screen NEGATIVE Narrative Narrative: EKG 11/2024 SB with 1st deg AV block @ 55 Assessment and Plan Assessment Anesthesia Assessment: Chart Reviewed Documented by User: Verito Mcwilliams MD 01/17/25 10:46 PMFSH Past Medical History Medical History Postoperative nausea Cholelithiasis Aneurysm of gastroduodenal artery Lung nodule HTN (hypertension) Hx of deep venous thrombosis Bilateral shoulder pain Hyperlipidemia Low grade B-cell lymphoma Diverticulosis Self-catheterizes urinary bladder GERD (gastroesophageal reflux disease) BPH (benign prostatic hyperplasia) Anxiety and depression Numbness Osteoarthritis Family History Family history of problems with anesthesia: No Surgical History Surgical History History of uvulectomy Hx of colonoscopy Hx of umbilical hernia repair (~1994) History of left knee replacement History of Problems with Anesthesia: No Social History Social History Household Members: None Housing: House Are you a primary dialysis patient care technician to a significant other at home: No Do you presently have visiting nurse or other home services: No Comment: aware of trip hazard Patient Tobacco Use Status: Never used Tobacco e-Cigarette/Vaping Use: Never Used Have you been hit, kicked, punched, or otherwise hurt by someone within the past year? 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 Allergies Allergy/AdvReac Type Severity Reaction Status Date / Time Penicillins Allergy Intermediate Nausea Verified 01/12/25 08:46 Home Medications ?Medication ?Instructions ?Recorded ?Confirmed ?Last Taken ?Type ibuprofen 200 mg tablet 800 mg PO Q8H PRN Pain 12/16/24 01/17/25 01/05/25 History Hemp Oil 1 drp PO DAILY 12/19/24 01/17/25 01/05/25 History Methyline Blue 3 drp PO DAILY 12/19/24 01/17/25 01/05/25 History calcium carbonate (Tums) 200 mg PO QID PRN Acid Reflux 12/19/24 01/17/25 01/05/25 History Exam Airway Mallampati Class: II TM Dist: >3cm Neck ROM: Full Heart: rrr Lungs: cta Assessment and Plan Assessment Anesthesia Assessment: Anesthesia Plan Discussed Final Anesthetic Review Family History of Problems with Anesthesia: No History of Problems with Anesthesia: No NPO: Yes ASA Class: III Final Preanesthetic Review: No Changes in Pt Med Stat, Meds/Allgs Chart Reviewed, Consent Obtained/Reviewed and Anes Risks/Benef Reviewed Patient Risk: Intermediate Procedure Risk: Intermediate Anesthetic Plan Anesthetic Plan: GA Disposition: Standard PACU
[2025-01-17] VITALS (14 sets, daily range): BP systolic 115–166; BP diastolic 61–90; PULSE 60–95; RESP 12–19; TEMP 36.1–36.4; O2SAT 94–97; BMI 32.6; BMI 32.7
--- NOTE | ~2025-01-17 | XR_ITS ---
EXAMINATION: XR PELVIS CLINICAL INFORMATION: lt vasquez COMPARISON: January 12, 2025. TECHNIQUE: AP view of the pelvis. FINDINGS: Metallic prosthesis with an acetabular and femoral component well-seated in the osseous structures. Normal alignment. Skin leroy overlapping the left hip. Metallic coils in the left inguinal left lower pelvis likely inguinal hernia repair. There is a suprapubic catheter in place. XR/XR pelvis 1-2V IMPRESSION: Total left hip arthroplasty prosthesis, intact and normal alignment. Electronically signed by: Kushal Reyes MD 01/17/2025 02:34 PM EDT
[2025-01-17] MEDS: Lactated Ringers 1,000 ML 100 ML IVCONT ×2 (08:40→17:51)
[2025-01-17] MEDS: oxyCODONE HCl ER 10 MG TAB.ER.12H PO ×2 (08:40→20:31)
[2025-01-17] MEDS: Scopolamine 1.5 MG PATCH.TD.3 TRANSDERMA (08:41)
--- NOTE | 2025-01-17 10:13 | MHC.SHP ---
Pre-Procedural Eval Section A - 24 Hr Update-Section A only Date of Service: 01/17/25 The patient is an INPATIENT: No Changes since office visit: No Cold of Flu in the past 2 weeks, No New Medical Problems, No Changes in Medication and No Patient answered all questions The patient has been examined within 24 hours of the surgical procedure. The History & Physical has been completed within 30 days and I have reviewed it.: Yes Section B - Complete if H&P > 30 days Chief Complaint: lt vasquez Allergies: Allergies Allergy/AdvReac Type Severity Reaction Status Date / Time Penicillins Allergy Intermediate Nausea Verified 01/12/25 08:46 Plan I have reviewed the history and physical and performed a pertinent physical examination on my patient. No changes have occurred unless specified. Time Spent With Patient Time: Total time managing care of this patient today ____ minutes.
[2025-01-17] MEDS: ceFAZolin Sodium/Dextrose,Iso 2 GM/50 ML PIGGYBACK IV ×2 (12:10→17:52)
[2025-01-17] MEDS: Acetaminophen 1,000 MG/100 ML PIGGYBACK 400 MG IV (12:25)
--- NOTE | 2025-01-17 13:36 | P.BOP_ITS ---
Brief Operative Note Date of Service: 01/17/25 Pre-op diagnosis: Left hip OA Post-op diagnosis: same Procedure: Left RAY Implants: Medardo Trident2 56/ 2 6.5 mm acetabular screws and 20 deg posterior lipped liner Lynn Accolade2 #5 127/ +2.5 36 ceramic femoral head Surgeon: Gus Sims MD Anesthesia: GETA and local Was an National Facilities Manager used for this Procedure?: Yes National Facilities Manager: Mati Agosto Estimated blood loss (mL): 250 IV fluids (mL): 800 Urine output (mL): 250 Pathology: other Condition: stable Disposition: PACU
[2025-01-17] MEDS: fentaNYL citrate/PF 100 MCG/2 ML VIAL 50 MCG IVPUSH ×2 (14:00→14:10)
--- NOTE | 2025-01-17 14:43 | PM.DS ---
DS: Providers Provider Date of Service: 01/18/25 Date of discharge: 01/18/25 Primary care physician: Unknown Physician DS: Summary Hospital Course Hospital Course: The patient underwent a successful left total hip arthroplasty, they were transferred to PACU and then to the floor to recover. During their stay, their vitals were stable, afebrile at 97.8. Labs were unremarkable, H/H 12.1/36.8. POD 1 they were started on Lovenox for DVT ppx, they also received Physical Therapy services. Prior to discharge, their dressing was clean dry and intact, and the plan was to be discharged home with VNA services. Time Attestation Discharge Coordination Time (in mins): 30 Quality: Safe Use of Opioids Does Pt have an Active Cancer Diagnosis on the Problem List?: No Quality: Stroke Does the patient have a stroke diagnosis?: No Physical Exam Vital Signs: Vital Signs: Last Vital Signs Temp 97.3 F 01/17/25 13:55 Pulse 64 01/17/25 14:40 Resp 14 01/17/25 14:40 BP 141/71 H 01/17/25 14:40 Pulse Ox 97 01/17/25 14:40 O2 Del Method Nasal Cannula 01/17/25 14:40 O2 Flow Rate 2 01/17/25 14:40 BMI result Body Mass Index 32.7 Const: General: cooperative, healthy appearing and no acute distress Resp: Effort & Inspection: normal respiratory effort and able to speak in complete sentences Cardio: Rate: regular rate Peripheral pulses: Peripheral pulses 2+ throughout GI: Palpation (GI): Soft to palpation Skin: Lesions: no lesions Rashes: no rashes Extrem: Other: left hip dressing is c/d/i. Able to dorsi/plantar flex. Calf is supple and nontender. Sensation intact. Pedal pulse intact. DS: Data Data Completed and Pending Pending studies at discharge: Pending at discharge 01/17/25 13:26 Surgical [PTH] Routine Discharge Plan Discharge Patient Disposition: Home Health Service Referrals: Mati Agosto PA-C [Physician Assistant Spa Manager] - 02/02/25 2:30 pm Discharge Medications: No Action (DME) walker Misc See Rx Instructions .ROUTE .MEDSUPPLY Qty: 1 0RF Rx Instructions: Folding front wheeled walker Cbd Oil 1 drp PO DAILY Methyline Blue 3 drp PO DAILY Patient Comments: 10 mg per ml calcium carbonate [Tums] 200 mg calcium (500 mg) Tablet,Chewable 200 mg PO QID PRN (Reason: Acid Reflux) ibuprofen 200 mg tablet 800 mg PO Q8H PRN (Reason: Pain) Discharge Orders: Discharge Order (Routine); Ordered 01/18/25 Ordered By: Amarilis Borrego Diet: Advance to usual diet Activity on Discharge: Use cane or walker Activity Restrictions/Additional Instructions: Physical Therapy for total hip arthroplasty: posterior precautions, gait training, ROM, strength Limit stair climbing No showering, no tub bath-keep dressing clean, dry and intact No driving x6 weeks Continue Lovenox x 6 weeks Follow up with [facility] in 2 weeks Print Language: Bolivian
--- NOTE | 2025-01-17 14:44 | W.MHC.F2F ---
Service Date Service Date: 01/17/25 Encounter Date of encounter: 01/18/25 Reasons for Services Signs and symptoms assessed: s/p LTHA Pt. is considered homebound due to recent surgery. Unable to drive, poor balance, poor gait mechanics. Reason for physical therapy: home safety and mobility, therapeutic exercises, restore joint function, gait/transfer training and ADL training Reason for occupational therapy: home safety and mobility, therapeutic exercises, restore joint function, gait/transfer training and ADL training Homebound: Leaving the home is medically contraindicated at this time without the asist of a device and/or another person due th the listed conditions above and below. Reason homebound: unsteady gait / fall risk, leg weakness, pain with ambulation, pain with transfers, poor balance / fall risk and unable to drive Certification: Based on the above findings, I certify that this patient is confined to the home and needs intermittent group home care, physical therapy and/or speech therapy, or continues to need occupational therapy. The patient is under my care, and I have initiated the establishment of the plan of care. The patient will be followed by a physician who will periodically review the plan of care. Time Spent With Patient Time: Total time managing care of this patient today ____ minutes.
[2025-01-17] MEDS: oxyCODONE HCl Immed Release 5 MG TABLET PO (16:11)
--- NOTE | 2025-01-17 16:34 | PHA.MEDREC ---
Addendum entered by Laisha Hodge RPh 01/17/25 16:36: reviewed by formerly [facility]. Original Note: Pharmacy Consult ? Medication Reconciliation Pharmacy has reviewed the medication reconciliation done by nursing. Spoke to patient to confirm med list. Patient states he has stopped all his medications 01/05/25 for surgery.
--- NOTE | 2025-01-17 17:11 | HO.PM.IMCN ---
History of Present Illness Data of Consult Service Date: 01/17/25 Requesting physician: Gus Sims Primary Care Provider: Unknown Physician HPI Reason for consult: hip pain 74 y/o Mwith pmhx of OA: Patient has left hip pain and follows up with orthopedics outpatient, came came to the hospital for left hip- he has has left hip pain ongoing since alomost 1 year. His pain is felt in the groin, he explains that this pain is worse than his pain in the knee. Pain is felt with ambulation and feels better at rest. He takes Ibuprofen which helped, which was stopped in anticipation of surgery: Came today for left hip surgery, status post left RAY. Denies any new complaint of chest pain or shortness of breath or abdominal pain or fever or chills or nausea or vomiting Denies any cough or weakness or numbness. Review of Systems Review of Systems: Yes all other systems are reviewed and are negative [facility] Medical History Postoperative nausea Cholelithiasis Aneurysm of gastroduodenal artery Lung nodule HTN (hypertension) Hx of deep venous thrombosis Bilateral shoulder pain Hyperlipidemia Low grade B-cell lymphoma Diverticulosis Self-catheterizes urinary bladder GERD (gastroesophageal reflux disease) BPH (benign prostatic hyperplasia) Anxiety and depression Numbness Osteoarthritis Surgical History History of uvulectomy Hx of colonoscopy Hx of umbilical hernia repair (~1994) History of left knee replacement Social History Household Members: None Housing: House Are you a primary palliative care specialist to a significant other at home: No Do you presently have visiting nurse or other home services: No Comment: aware of trip hazard Patient Tobacco Use Status: Never used Tobacco e-Cigarette/Vaping Use: Never Used Use of substances other than those prescribed or required for medical reasons: No Have you been hit, kicked, punched, or otherwise hurt by someone within the past year? 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 Meds Allergies Allergy/AdvReac Type Severity Reaction Status Date / Time Penicillins Allergy Intermediate Nausea Verified 01/12/25 08:46 Active Medications: Current Medications Acetaminophen (Acetaminophen 325 Mg Tablet) 650 mg PO Q6H PRN PRN Reason: Pain, Mild 1-3,fever,headache Celecoxib (Celecoxib 200 Mg Capsule) 200 mg PO BID MILIND Docusate Sodium (Docusate Sodium 100 Mg Capsule) 100 mg PO BID MILIND Enoxaparin Sodium (Enoxaparin Sodium 40 Mg/0.4 Ml Syringe) 40 mg SUBCUT Q24H MILIND Hydromorphone HCl (Hydromorphone Hcl 0.5 Mg/0.5 Ml Syringe) 0.5 mg IVPUSH Q5M PRN PRN Reason: Pain, Moderate to Severe (Pain Scale 4-10) Stop: 01/17/25 20:02 Hydromorphone HCl (Hydromorphone Hcl 0.5 Mg/0.5 Ml Syringe) 0.25 mg IVPUSH Q4H PRN; Protocol PRN Reason: Pain, Severe (Pain Scale 7-10) Lactated Ringer's (Lr) 1,000 mls @ 100 mls/hr IVCONT .Q10H MILIND Stop: 01/18/25 08:00 Cefazolin Sodium/Dextrose (Ancef) 2 gm in 50 mls @ 100 mls/hr IV POSTOP ONE Stop: 01/17/25 18:29 Naloxone HCl (Naloxone Hcl 0.4 Mg/Ml Vial) 0.04 mg IVPUSH Q5M PRN PRN Reason: Excessive sedation or RR < 8 Ondansetron HCl (Ondansetron Hcl 4 Mg/2 Ml Vial) 4 mg IVPUSH Q8H PRN PRN Reason: Nausea and Vomiting Oxycodone HCl (Oxycodone Hcl Immed Release 5 Mg Tablet) 5 mg PO Q4H PRN PRN Reason: Pain, Moderate(Pain Scale 4-6) Last Admin: 01/17/25 16:11 Dose: 5 mg Oxycodone HCl (Oxycodone Hcl Er 10 Mg Tab.Er.12h) 10 mg PO BID MILIND Sodium Chloride (0.9 % Sodium Chloride Flush 3 Ml Syringe) 3 ml IVFLUSH QSHIFT [facility] Home Medications ?Medication ?Instructions ?Recorded ?Confirmed ?Last Taken ?Type ibuprofen 200 mg tablet 800 mg PO Q8H PRN Pain 12/16/24 01/17/25 01/05/25 History Methyline Blue 3 drp PO DAILY 12/19/24 01/17/25 01/05/25 History calcium carbonate (Tums) 200 mg PO QID PRN Acid Reflux 12/19/24 01/17/25 01/05/25 History Cbd Oil 1 drp PO DAILY 01/17/25 01/17/25 01/05/25 History Physical Exam Vital Signs and Narrative: Vital Signs: Last Vital Signs Temp 96.9 F 01/17/25 15:48 Pulse 62 01/17/25 15:48 Resp 18 01/17/25 15:48 BP 140/82 H 01/17/25 15:48 Pulse Ox 97 01/17/25 15:48 O2 Del Method Nasal Cannula 01/17/25 15:48 O2 Flow Rate 2 01/17/25 15:48 BMI result Body Mass Index 32.7 Appearance: Alert.? Oriented X3.? cvs: rrr, [id number] . res: clear to auscultation ,no rhonchii or wheezing abd: no rebound or guarding ,nt, bs present. ext pulses present , no cyanosis . MS: left Hip tka area : clean , no erythema ,has mild soarness. neuro: axo3 , nonfocal. Results Labs 01/12/25 10:07 01/12/25 10:07 Imaging Radiologist's Impressions: Impressions Pelvis X-Ray 01/17/25 13:51 IMPRESSION: Total left hip arthroplasty prosthesis, intact and normal alignment. Electronically signed by: Kushal Reyes MD 01/17/2025 02:34 PM EDT Assessment and Plan (1) Osteoarthritis of left hip: Status: Acute (2) Elevated blood pressure reading: Status: Acute Plan 74 y/o Mwith pmhx of OA: Patient has left hip pain and follows up with orthopedics outpatient, came came to the hospital for left hip- he has has left hip pain ongoing since alomost 1 year. His pain is felt in the groin, he explains that this pain is worse than his pain in the knee. Pain is felt with ambulation and feels better at rest. He takes Ibuprofen which helped, which was stopped in anticipation of surgery: Came today for left hip surgery, status post left RAY. Left tka: painmanagment/dvt prophylax per ortho. mild elevated bp: not on any home meds continue to moniter, if needed will consider htn medication. will sign off now ,please call us for any questions above management d/w patient in detailed length,he understand in agreement with the plan.
[2025-01-17] MEDS: 0.9 % Sodium Chloride Flush 3 ML SYRINGE IVFLUSH (17:52)
--- NOTE | 2025-01-17 19:15 | PC.NURSE ---
Family called with concerns about patient being discharged home rather than STR. Pt lives home alone, family [place] out of state. 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 Stairs don't have railing. This RN spoke to patient about not pushing himself too hard and following Dr's recommendations especially in regard to going back to work. Pt states he understands.
[2025-01-17] MEDS: Docusate Sodium 100 MG CAPSULE PO (20:31)
[2025-01-17] MEDS: Celecoxib 200 MG CAPSULE PO (20:32)
[2025-01-18 02:00] VITALS: BP 127/75; PULSE 58; RESP 18; TEMP 36.4; O2SAT 92
[2025-01-18 03:46] VITALS: BP 140/80; PULSE 64; RESP 18; TEMP 36.3; O2SAT 95
[2025-01-18] MEDS: Lactated Ringers 1,000 ML 100 ML IVCONT (03:50)
[2025-01-18 05:26] LABS: MANUAL DIFF FLAG NO
[2025-01-18 05:27] LABS: Basophils Percent Auto 0.2 % (0-2); Hematocrit 36.8 % (42.0-52.0); Hemoglobin 12.1 g/dl (14.0-18.0); Imm Gran Abs Auto 0.05 X10*3/uL (0.00-0.03); Imm Gran Pct Auto 0.4 % (0.0-0.4); Lymphocytes Absolute Auto 0.9 X10*3/uL (1.2-4.9); Lymphocytes Percent Auto 7.6 % (20-40); Mean Corpuscular HGB Conc 32.9 g/dl (31.0-36.0); Mean Corpuscular Hemoglobin 27.1 pg (27.0-33.0); Mean Corpuscular Volume 82.5 fL (80.0-98.0); Monocytes Absolute Auto 0.8 X10*3/uL (0.1-1.2); Neutrophils Percent Auto 84.8 % (45-73); Platelet Count 286 X10*3/uL (160-400); Red Blood Count 4.46 X10*6/uL (4.60-5.80); Red Cell Distribution Width 14.5 % (11.0-16.0); White Blood Count 11.8 X10*3/uL (4.8-10.8)
[2025-01-18 05:40] LABS: Anion Gap 12 (12-20); Blood Urea Nitrogen 14 mg/dL (9-16); Calcium 8.7 mg/dL (8.4-10.2); Carbon Dioxide 26 mmol/L (22-29); Chloride 107 mmol/L (96-108); Creatinine Clr Calc Pharmacy 79.2; Estimated Glomerular Filt Rate > 60; Glucose Fasting 110 mg/dL (60-99); Potassium 4.8 mmol/L (3.3-5.1); Sodium 140 mmol/L (135-145)
[2025-01-18 06:00] VITALS: BP 147/80; PULSE 61; RESP 18; TEMP 36.6; O2SAT 93
[2025-01-18] MEDS: Docusate Sodium 100 MG CAPSULE PO (07:01)
[2025-01-18] MEDS: Celecoxib 200 MG CAPSULE PO (07:01)
[2025-01-18] MEDS: oxyCODONE HCl Immed Release 5 MG TABLET PO (07:01)
[2025-01-18] MEDS: oxyCODONE HCl ER 10 MG TAB.ER.12H PO (07:01)
[2025-01-18 07:30] VITALS: BP 143/77; PULSE 61; RESP 18; TEMP 36.3; O2SAT 97
--- NOTE | 2025-01-18 07:49 | PM.PNORT ---
Subjective Subjective Date of Service: 01/18/25 Principal diagnosis: POD#1 s/p left RAY Interval history: No complaints. Doing well. Physical Exam Vital Signs: Vital Signs: Last Vital Signs Temp 97.3 F 01/18/25 07:30 Pulse 61 01/18/25 07:30 Resp 18 01/18/25 07:30 BP 143/77 H 01/18/25 07:30 Pulse Ox 97 01/18/25 07:30 O2 Del Method Room Air 01/18/25 07:30 O2 Flow Rate 2 01/17/25 15:48 BMI result Body Mass Index 32.7 Extrem: Other: SILT Toes wwp dressing c/d/i Procedures Date of Service Date of Service: 01/18/25 Progress Note: A&P Assessment and plan (1) S/P total left hip arthroplasty: Status: Acute Assessment and Plan: Dispo planning Repeat AP radiograph prior to dispo PT DVT prophylaxis Time Spent With Patient Time: Total time managing care of this patient today ____ minutes. Quality Stroke Does the patient have a stroke diagnosis?: No VTE Prior VTE?: No VTE Risk Level:: Medical - moderate - high VTE Device Contraindication: N/A - Device Ordered VTE Drug Contraindication: N/A - Med Ordered
--- NOTE | 2025-01-18 09:12 | HO.POSTANES ---
Post Anesthesia Evaluation Post Anesthesia Evaluation Date of Service: 01/18/25 Vital Signs: Vital Signs Temp Pulse Resp BP Pulse Ox O2 Del Method 01/18/25 07:30 97.3 F 61 18 143/77 H 97 Room Air 01/18/25 06:00 97.8 F 61 18 147/80 H 93 Room Air 01/18/25 03:46 97.4 F 64 18 140/80 H 95 Room Air 01/18/25 02:00 97.6 F 58 18 127/75 92 Room Air 01/17/25 23:36 97.6 F 95 18 127/82 94 Room Air 01/17/25 22:00 96.9 F 69 18 115/61 94 Room Air Anesthesia: General Endotracheal-GETA Mental Status: Awake Pain Control: Satisfactory Nausea/Vomiting: None Hydration: Adequate Anesthesia-Related Issues: No Anes. Related Issues
--- NOTE | 2025-01-18 09:28 | MHC.CM.PN ---
pt lives alone has family nearby dc plan home w/vna
[2025-01-18 11:13] VITALS: BP 143/77; PULSE 61; O2SAT 97
--- NOTE | 2025-01-18 12:31 | MHC.CM.PN ---
pt accepted by [facility] at 12;30 PT DCD HOME W/[facility]
--- NOTE | 2025-01-19 08:25 | P.OP_ITS ---
Operative Note Operative Note Date of Service: 01/17/25 Narrative: Date of Service: 01/17/25 Pre-op diagnosis: Left hip OA Post-op diagnosis: same Procedure: Left RAY Implants: Roslyn Trident2 56/ 2 6.5 mm acetabular screws and 20 deg posterior lipped liner Roslyn Accolade2 #5 127/ +2.5 36 ceramic femoral head Surgeon: Gus Sims MD Anesthesia: GETA and local Was an Supervisor Tumblers used for this Procedure?: Yes Supervisor Tumblers: Mati Agosto Estimated blood loss (mL): 250 IV fluids (mL): 800 Urine output (mL): 250 Pathology: other Condition: stable Disposition: PACU Procedure in detail: Patient was brought into the operating room and placed in the right lateral decubitus position. All bony prominences were well padded and the limb was prepped and draped in standard sterile fashion. A time-out was called to identify proper site procedure proper surgeon IV antibiotics and 1 g of tranexamic acid were administered. I began by making a curvilinear incision over the posterolateral aspect of the greater trochanter. Dissection was taken down to the tensor fascia which was incised in line with the incision and a Charnley retractor was placed. Cautery was used to maintain hemostasis. The hip was internally rotated and the external rotators were identified. The vessels were cauterized and a full-thickness capsular/external rotator layer was developed starting just proximal to the piriformis. This layer was tagged and a dull Hohmann retractor was placed underneath the neck in the hip was dislocated. A neck cut was made 1 cm proximal to the lesser trochanter and the head and neck were removed and measured 52-54mm on the back table. The head was eburnated. I then removed the labrum and cauterized the fovea. I started with a 46 reamer and medialized to the inner table. I sequentially reamed up to a size 56 and impacted a 56mm cup at 45 degrees of inclination and 25 degrees of version. I then placed two acetabular screws into the superior safe zone. I then placed a 20 deg posterior lipped liner and turned my attention to the femur. I identified the piriformis insertion and used this as a starting point for my eren cutter. The medius tendon was protected with a Hibs retractor. A Charnley awl was inserted in the canal and a curved curette used to remove the lateral bone. I irrigated copiously. I then sequentially broached in the patient's natural version to a size 5 and placed my trial implants. I used a #5/127/+2.5 based on my pre-operative template. I removed all instrumentation and copiously irrigated. I placed my final femoral implant and again took the hip through range of motion and was satisfied with the stability and length. The final +2.5 implant was impacted in place and the hip reduced. I then irrigated copiously and placed 1 g of local tranexamic acid. I performed a capsular closure with 2.0 fiberwire, Helene's fascia with 0 Vicryl, subcuticular with 2-0 Vicryl and the skin with leroy. Patient was placed into a sterile dressing. Patient was extubated brought to the recovery room in stable condition. There were no known complications.
== END 2025-01-18 11:11 | disposition home health service (06) ==
LOC: HO.SSS 14:42 → HO.S3 15:22
PROVIDERS: Physician Assistant; PCP Family Medicine; Visit Provider Orthopaedic Surgery
PROC: (CPT 27130; principal; 2025-01-17 12:50)
DX: M16.12 Unilateral primary osteoarthritis, left hip (principal); M25.552 Pain in left hip; R26.2 Difficulty in walking, not elsewhere classified; I10 Essential (primary) hypertension; E78.5 Hyperlipidemia, unspecified; C85.10 Unspecified B-cell lymphoma, unspecified site; F41.8 Other specified anxiety disorders; Z86.718 Personal history of other venous thrombosis and embolism; Z79.1 Long term (current) use of non-steroidal anti-inflammatories (NSAID); Z79.899 Other long term (current) drug therapy; Z88.0 Allergy status to penicillin; Z96.652 Presence of left artificial knee joint; Z98.890 Other specified postprocedural states
CPT/HCPCS: 27130; 36415; 72170; 80048; 85025; 86850; 86900; 86901; 88304; 88311; 97162; 97166; C1713; C1776; J0131; J0690; J1100; J1171; J2405; J2704; J3010; J7120

== ENCOUNTER → 2025-01-17 07:36 | Outpatient (BNV) | payer MEDICARE, SELFPAY | PROVIDERS: Visit Provider Orthopaedic Surgery | DX: Z47.1 Aftercare following joint replacement surgery (principal); Z96.642 Presence of left artificial hip joint | CPT/HCPCS: 27130; 99024; G0180 ==

== ENCOUNTER → 2025-01-17 07:36 | Outpatient (BNV) | payer MEDICARE, SELFPAY | PROVIDERS: Visit Provider Internal Medicine | DX: R03.0 Elevated blood-pressure reading, without diagnosis of hypertension (principal); M16.12 Unilateral primary osteoarthritis, left hip | CPT/HCPCS: 99203; 99213 ==

== ENCOUNTER → 2025-01-17 13:51 | Outpatient (BNV) | payer MEDICARE, SELFPAY | PROVIDERS: Visit Provider Radiology Diagnostic Radiology | DX: Z96.642 Presence of left artificial hip joint (principal) | CPT/HCPCS: 72170 ==

== ENCOUNTER 2025-02-02 13:26 | Outpatient (AMB) | payer MEDICARE, SELFPAY ==
--- OUTSIDE RECORDS SUMMARY | 2025-02-02 13:33 | XMS_ITS | Clinical Summary ---
Author Organization [facility] [place] [address] Phone Care Team Providers Care Bank Note Designer Name Role Phone Juanita Sunshine MD Primary Care Provider Unavailab le Social History Tobacco Use Types Packs/Day Years [...] Description 07/04/2025 1:00 PM EDT Office Visit [facility] Hematology Oncology [address] [place] [phone] Jennifer Millard MD [address] [place] [address] Health Maintenance Due Date Last Done Comments [...] topic Insurance [employer] Care Teams Bank Note Designer Relationship Specialty Start Date End Date Jaunita Sunshine MD PCP - General Internal Medicine 07/04/21
--- NOTE | 2025-02-02 13:46 | MHC.OFFVIS ---
Intake Visit Reasons: 2WK PO: LTHA w/NE 01/17/25 Intake Note: Adolfo is a 74 year old male who presents today post operatively after undergoing a LT RAY on 01/17/[address] Sims. Patient reports he is doing well, he has no concerns today. He anticipates staple removal today. Allergies Penicillins Allergy (Intermediate, Verified 02/02/25 13:49) Nausea Medication List - Last Reconciled 02/02/25 by Mati Agosto PA-C acetaminophen 325 mg PO QID PRN 30 days calcium carbonate (Tums) 200 mg PO QID PRN [Cbd Oil 1 drp PO DAILY] celecoxib (Celebrex) 200 mg PO BID PRN 30 days docusate sodium (Colace) 100 mg PO DAILY 30 days enoxaparin (Lovenox) 40 mg (0.4 mL) subcut DAILY 42 days [Methyline Blue 3 drps PO DAILY] oxycodone-acetaminophen 5-325 mg (Percocet) 1 tab PO Q4-6H PRN 7 days walker Folding front wheeled walker HPI HPI 2WK PO: LTHA w/NE 01/17/25: Details: 74-year-old gentleman returns to the office today 2 weeks status post left total hip arthroplasty on 01/17/[address] Sims. He is doing quite well. Amblates with a cane. No concerns today. REPLACED BY [facility] Medical History Postoperative nausea Cholelithiasis Aneurysm of gastroduodenal artery Lung nodule HTN (hypertension) Hx of deep venous thrombosis Bilateral shoulder pain Hyperlipidemia Low grade B-cell lymphoma Diverticulosis Self-catheterizes urinary bladder GERD (gastroesophageal reflux disease) BPH (benign prostatic hyperplasia) Anxiety and depression Numbness Osteoarthritis Surgical History History of uvulectomy Hx of colonoscopy Hx of umbilical hernia repair (~1994) History of left knee replacement Social History Household Members: None Housing: House Are you a primary ocular care technician to a significant other at home: No Do you presently have visiting nurse or other home services: No 75 years or older and lives alone: Yes Comment: aware of trip hazard Patient Tobacco Use Status: Never used Tobacco e-Cigarette/Vaping Use: Never Used service: No Current occupational status: employed 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 No erythema. No drainage. He can perform hip range of motion without pain. Calf supple nontender neurovascularly intact. Assessment & Plan Assessment & Plan (1) S/P total left hip arthroplasty: Code(s): Z96.642 - Presence of left artificial hip joint Category: Surgical Plan: Antwon removed today Steri-Strips applied. I discussed the importance of maintaining his physical therapy exercises to improve his strength and gait training. No driving for another 4 weeks. 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 He states he can remain in a truck for about 8 hours at a time. I told him he may need to wait another 8 weeks at least to return to work as this could increase his risk of complications if he is climbing in and out of trucks and sitting in a truck for a long period of time. Patient does express understanding. He will see us back in [address] Sims, sooner if needed. Coding Level of Care Code Global (80296) Diagnoses S/P total left hip arthroplasty Z96.642
== END 2025-02-02 14:18 | disposition home or self-care (01) ==
LOC: HO.HOS 13:27
PROVIDERS: PCP Internal Medicine; Visit Provider Physician Assistant
DX: Z96.642 Presence of left artificial hip joint (principal)
CPT/HCPCS: 99024

== ENCOUNTER → 2025-02-02 13:26 | Outpatient (BNVA) | payer MEDICARE, SELFPAY | PROVIDERS: PCP Internal Medicine; Visit Provider Physician Assistant | DX: Z47.1 Aftercare following joint replacement surgery (principal); Z96.642 Presence of left artificial hip joint | CPT/HCPCS: 99212 ==

== ENCOUNTER 2025-02-23 12:27 | Outpatient (REF) | payer MEDICARE, SELFPAY ==
--- NOTE | ~2025-02-23 | XR_ITS ---
EXAMINATION: XR PELVIS CLINICAL INFORMATION: M25.559 - Pain in unspecified hip COMPARISON: January 18, 2025. Correlated to cross lateral view left hip dated February 23, 2025.. TECHNIQUE: AP view of the pelvis. FINDINGS: Metallic hip prosthesis well-seated in the osseous acetabulum and proximal femur without gross cortical disruption or malalignment. There is faint loosening along the hardware of the acetabulum and to a lesser extent greater trochanter. Mild degenerative changes in the right hip. Spondylosis L4-5 and L5-S1. Prominent transverse processes of L5. Metallic coils overlapping the left inguinal canal.. XR/XR pelvis 1-2V IMPRESSION: Status post total left hip arthroplasty prosthesis with questionable loosening along the acetabular component and the greater tuberosity of the left femur. Electronically signed by: Kushal Reyes MD 02/23/2025 02:15 PM EDT
--- NOTE | ~2025-02-23 | XR_ITS ---
EXAMINATION: XR HIP, LEFT CLINICAL INFORMATION: M25.552 - Pain in left hip COMPARISON: January 12, 2025. TECHNIQUE: Gross lateral view of the left hip. FINDINGS: There is a metallic hip prosthesis with an acetabular and femoral component well-seated in the osseous structures without gross malalignment. XR/XR hip LT 1V IMPRESSION: Total left hip arthroplasty prosthesis without dislocation. Electronically signed by: Kushal Reyes MD 02/23/2025 02:13 PM EDT
--- OUTSIDE RECORDS SUMMARY | 2025-02-23 13:35 | XMS_ITS | Clinical Summary ---
Author Organization [facility] [place] [address] Phone Care Team Providers Care Customizer Name Role Phone Juanita Sunshine MD Primary [...] Office Visit [facility] Hematology Oncology [address] [place] [phone] Jennifer Millard MD [address] [place] [address] Health Maintenance Due Date Last Done Comments [...] topic Insurance [employer] Care Teams Customizer Relationship Specialty Start Date End Date Juanita Sunshine MD PCP - General Internal Medicine 07/04/21
== END 2025-02-23 12:28 | disposition home or self-care (01) ==
LOC: HO.HOSX 12:27
PROVIDERS: Visit Provider Orthopaedic Surgery
DX: M25.559 Pain in unspecified hip (principal); M25.552 Pain in left hip; Z96.642 Presence of left artificial hip joint
CPT/HCPCS: 72170; 73501; 99212

== ENCOUNTER 2025-02-23 13:09 | Outpatient (AMB) | payer MEDICARE, SELFPAY ==
--- NOTE | 2025-02-23 14:01 | MHC.OFFVIS ---
Intake Visit Reasons: 6WK PO: LTHA w/NE 01/17/25 Intake Note: Adolfo is a 74 year old male who presents today for a post operative appointment about 6 weeks s/p Left RAY 01/17/25. 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 Allergies Penicillins Allergy (Intermediate, Verified 02/02/25 13:49) Nausea HPI HPI 6WK PO: LTHA w/NE 01/17/25: Details: Adolfo is doing great. He has no complaints. He is 6 weeks status post left hip replacement. He still uses a cane for balance but states he does not feel like he needs to. He denies fevers and chills. [facility] Medical History Postoperative nausea Cholelithiasis Aneurysm of gastroduodenal artery Lung nodule HTN (hypertension) Hx of deep venous thrombosis Bilateral shoulder pain Hyperlipidemia Low grade B-cell lymphoma Diverticulosis Self-catheterizes urinary bladder GERD (gastroesophageal reflux disease) BPH (benign prostatic hyperplasia) Anxiety and depression Numbness Osteoarthritis Surgical History History of uvulectomy Hx of colonoscopy Hx of umbilical hernia repair (~1994) History of left knee replacement Social History Household Members: None Housing: House Are you a primary family day carer to a significant other at home: No Do you presently have visiting nurse or other home services: No 75 years or older and lives alone: Yes Comment: aware of trip hazard Patient Tobacco Use Status: Never used Tobacco e-Cigarette/Vaping Use: Never Used service: No Current occupational status: employed 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 Painless hip range of motion. Results Reviewed Results Reviewed: I personally reviewed relevant radiographs. Left RAY in expected post operative position with no hardware complications or evidence of loosening Assessment & Plan Assessment & Plan (1) S/P total left hip arthroplasty: Code(s): Z96.642 - Presence of left artificial hip joint Category: Surgical Plan: Status post left hip arthroplasty. He is doing very well. He may discontinue any anticoagulants. He can continue his postoperative exercises and follow up to see us in 6 weeks. Orders: Orders XR pelvis 1-2V 02/23/25 M25.559 - Pain in unspecified hip XR hip LT 1V 02/23/25 M25.552 - Pain in left hip Coding Level of Care Code Global (38018) Diagnoses S/P total left hip arthroplasty Z96.642
== END 2025-02-23 14:29 | disposition home or self-care (01) ==
LOC: HO.HOS 13:09
PROVIDERS: PCP Internal Medicine; Visit Provider Orthopaedic Surgery
DX: Z96.642 Presence of left artificial hip joint (principal)
CPT/HCPCS: 99024

== ENCOUNTER → 2025-02-23 13:14 | Outpatient (BNV) | payer MEDICARE, SELFPAY | PROVIDERS: Visit Provider Radiology Diagnostic Radiology | DX: Z96.642 Presence of left artificial hip joint (principal); M16.11 Unilateral primary osteoarthritis, right hip | CPT/HCPCS: 72170; 73501 ==

== ENCOUNTER 2025-04-20 09:23 | Outpatient (AMB) | payer MEDICARE, SELFPAY ==
--- NOTE | 2025-04-20 09:31 | A.OFFVIS_ITS ---
Intake Visit Reasons: PO - Left RAY w/NE 01/17/25 Intake Note: Adolfo is a 75 year old male who presents today for a follow up visit s/p Left RAY 01/17/25. Patient reports that he is doing fantastic, he is not having any pain or concerns. Allergies Penicillins Allergy (Intermediate, Verified 02/02/25 13:49) Nausea HPI HPI PO - Left RAY w/NE 01/17/25: Details: Adolfo is a 75 year old male who presents today for a follow up visit s/p Left RAY 01/17/25. Patient reports that he is doing fantastic, he is not having any pain or concerns. He wants to go back to work. He has no pain in his left hip. He states his right knee is painful but he has missed so much work over the past several months that he is going to try to return to work before he considers further intervention right knee. [facility] Medical History Postoperative nausea Cholelithiasis Aneurysm of gastroduodenal artery Lung nodule HTN (hypertension) Hx of deep venous thrombosis Bilateral shoulder pain Hyperlipidemia Low grade B-cell lymphoma Diverticulosis Self-catheterizes urinary bladder GERD (gastroesophageal reflux disease) BPH (benign prostatic hyperplasia) Anxiety and depression Numbness Osteoarthritis Surgical History History of uvulectomy Hx of colonoscopy Hx of umbilical hernia repair (~1994) History of left knee replacement Social History Household Members: None Housing: House Are you a primary care tech to a significant other at home: No Do you presently have visiting nurse or other home services: No 75 years or older and lives alone: Yes Comment: aware of trip hazard Patient Tobacco Use Status: Never used Tobacco e-Cigarette/Vaping Use: Never Used service: No Current occupational status: employed 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 Normal gait with no gait antalgia. No Trendelenburg gait. Incision clean dry and intact. Assessment & Plan Assessment & Plan (1) S/P total left hip arthroplasty: Code(s): Z96.642 - Presence of left artificial hip joint Category: Surgical Plan: Adolfo is doing well status post left hip replacement. He can return to work. Should avoid heavy lifting but states he does not really do this anyway. 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 I discussed dental prophylaxis but he has dentures. He can follow up to see me for his shoulders in the future. If he wants to have his knee treated he should let us know and we will set him up again with Dr. Chung. Coding Level of Care Code Global (82829) Diagnoses S/P total left hip arthroplasty Z96.642
--- OUTSIDE RECORDS SUMMARY | 2025-04-20 10:05 | XMS_ITS | Clinical Summary ---
Author Organization [facility] [place] [address] Phone Care Team Providers Care Personal Financial Counselor Name Role Phone Juanita Sunshine MD Primary [...] Description 07/04/2025 1:00 PM EDT Office Visit [facility] Hematology Oncology [address] [place] [phone] Jennifer Millard MD [address] [place] [address] Health Maintenance Due Date Last Done Comments COVID-19 Vaccine (#1) 1953 DTaP,Tdap,and Td Vaccines (1 - Tdap) 1967 Pneumococcal Vaccine: 50+ Ye ars (1 of 2 - PCV) 1967 Zoster Vaccines (1 of 2) 1967 Cholesterol Screening (Lipid Panel) 08/09/2022 Falls Risk Assessment 08/09/2022 Hepatitis C Screening 08/09/2022 Medicare Annual Wellness Visit 08/09/2022 Social Influencers of Health Screening 08/09/2022 RSV Immunization Adult Patie nts (1 - 1-dose 75+ series) 2023 Depression Screening 09/07/2024 Influenza Vaccine (#1) 2025 HIB Vaccines Aged Out No longer [...] topic Insurance [employer] Care Teams Personal Financial Counselor Relationship Specialty Start Date End Date Juanita Sunshine MD PCP - General Internal Medicine 07/04/21
--- OUTSIDE RECORDS SUMMARY | 2025-04-20 10:05 | XMS_ITS | Clinical Summary ---
Author Organization [facility] Address [address] [place] [address] Care Team Providers Care Email Campaign Specialist Name Role Phone Juanita Sunshine MD Primary Care Provider [phone] Allergies Active Allergy Reactions Criticality Noted Date [...] 72 07/04/2024 1:05 PM EDT Temperature 36.6 C (97.8 F) 07/04/2024 1:05 PM EDT Respiratory Rate - - Oxygen Saturation 97% [...] 1-dose 75+ series) 2023 Influenza Vaccine (#1) 2025 , 06/29/2019, 06/06/2019 Hepatitis B Vaccines Aged Out No long er eligible based on patient's age to complete this topic RSV Ped < 20 months Aged Out No longe r eligible based on patient's age to complete this topic Care Teams Email Campaign Specialist Relationship Specialty Start Date End Date Juanita Sunshine MD [address] [place] [phone] PCP - General Internal Medicine 02/24/23
== END 2025-04-20 10:07 | disposition home or self-care (01) ==
PROVIDERS: Visit Provider Orthopaedic Surgery
DX: Z47.1 Aftercare following joint replacement surgery (principal); Z96.642 Presence of left artificial hip joint
CPT/HCPCS: 99213

== ENCOUNTER → 2025-04-20 09:23 | Outpatient (BNVA) | payer MEDICARE, SELFPAY | PROVIDERS: Visit Provider Orthopaedic Surgery | DX: Z96.642 Presence of left artificial hip joint (principal); Z98.890 Other specified postprocedural states | CPT/HCPCS: 99212 ==

== ENCOUNTER 2025-08-21 | Outpatient (REF) | payer MEDICARE, SELFPAY ==
--- OUTSIDE RECORDS SUMMARY | 2024-07-04 11:43 | XMS_ITS | Encounter Summary ---
Author Organization [facility] [place] [address] Care Team Providers Care Blind Eyeletter Name Role Phone Juanita Sunshine MD Primary Care Provider Unavailab le Encounter Details Date Type Department Care Team (Late st Contact Info) Description 07/04/2024 12:43 PM EDT Hospital Encounter TH HISTORIC ENCOUNTERS EASTERN CONVERSION ONLY Jennifer Millard MD [address] [place] [id number] Social History Tobacco Use Types Packs/Day Years Used Date Smoking Tobacco: Never Alcohol Use Standard Drinks/Week Comments Never 0 (1 standard drink = 0.6 oz pur e alcohol) Sex and Gender Information Value Date Recorded Sex Assigned at Not on file Legal Sex Male 6:05 PM EST Gender Identity Not on file Sexual Orientation Not on file documented as of this encounter Last Filed Vital Signs Vital Sign Reading Time Taken Comments Blood Pressure 143/83 07/04/2024 1:05 PM EDT Sit ting Left arm Pulse 74 07/04/2024 1:05 PM EDT Temperature - - Respiratory Rate - - Oxygen Saturation - - Inhaled Oxygen Concentration - - Weight 93 kg (205 lb) 07/04/2024 1:05 PM EDT Height 172.7 cm (5' 8 ) 08/25/2023 1:12 PM EST Body Mass Index 31.17 08/25/2023 1:12 PM EST documented in this encounter Progress Notes * Jennifer Millard MD - 07/04/2024 1:00 PM EDT CHIEF COMPLAINT: Follow-up IDENTIFIER:Adolfo Morataya is a 74 y.o. male. 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 PAST SURGICAL HISTORY: Knee replacement ?? 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 FAMILY HISTORY: Noncontributory No current outpatient medications on file. You are allergic to the following Date Reviewed: 07/04/2024 Allergen Reactions Penicillins Not Noted PHYSICAL EXAM: BP 143/83 (BP Location: Left arm) Pulse 74 Temp 97.8 ??F (36.6 ??C) (Temporal) Wt 93 kg (205 lb) SpO2 97% BMI 31.17 kg/m?? ECOG 0 APPEARANCE: Alert and oriented x 3 in no acute distress EYES: nonicteric sclera pink conjunctiva ORAL CAVITY: No erythema or exudates NECK: Neck supple, no cervical and supraclavicular adenopathy, HEART: normal S1 and S2 LUNG: clear to auscultation bilaterally LYMPH NODES: No palpable superficial adenopathy ABDOMEN: Obese, distended, soft, nontender and no significant organomegaly appreciated EXTREMITIES: No edema erythema or tenderness LABS: WBC 7.5, hemoglobin 14.3 g, hematocrit 45.1% and platelet count 375 Peripheral smear unremarkable LDH 202 and beta-2 microglobulin 2.2 IMPRESSION: SNOMED CT(R) 1. Follicular low grade B-cell lymphoma (HCC) FOLLICULAR LOW GRADE B-CELL LYMPHOMA 74-year-old man who has been in very good health, not taking any prescription medication, has low-grade follicular lymphoma diagnosed few years ago, patient has no indication for therapeutic intervention, currently patient has been feeling basically great except some fatigue which has resolved few weeks ago, denies any night sweats, he does not have any enlarging adenopathy, splenomegaly etc., I gave him reassurance I told him about his low-grade follicular lymphoma and there is no indication for therapeutic intervention PLAN: I will recheck labs prior to next visit in 1 year Jennifer Millard MD documented in this encounter Plan of Treatment Upcoming Encounters Date Type Department Care Team (Late st Contact Info) Description 07/17/2026 1:30 PM EST Office Visit [facility] Hematology Oncology [address] [place] [address] Jennifer Millard MD [address] [place] [address] documented as of this encounter Procedures Procedure Name Priority Date/Time Associated Diagnosis Comments ..MISCELLANEOUS REFERENCE LAB TEST 07/04/2024 documented in this encounter Results * Miscellaneous reference lab test (07/04/2024) us Provider Onbase LAB BLOOD ORDERABLES Final Re sult documented in this encounter Visit Diagnoses Not on filedocumented in this encounter Care Teams Blind Eyeletter Relationship Specialty Start Date End Date Juanita Sunshine MD PCP - General Internal Medicine 07/04/21 09/12/25 documented as of this encounter
--- NOTE | ~2025-08-21 | XR_ITS ---
EXAMINATION: XR SHOULDER, LEFT CLINICAL INFORMATION: M25.512 - Pain in left shoulder COMPARISON: None available. TECHNIQUE: Three views of the left shoulder. FINDINGS: Severe glenohumeral arthritis. Mild acromioclavicular arthritis. No visible acute fracture, dislocation or suspicious bony lesion. Small calcification projected along the posterior aspect of the humeral head on the scapular Y view, could reflect calcific tendinitis. XR/XR shoulder LT min 2V IMPRESSION: Osteoarthritis as detailed above. Small calcification along the posterior aspect of the humeral head, could reflect calcific tendinitis. Electronically signed by: Brijesh Salgado MD 08/22/2025 04:38 PM EST
--- OUTSIDE RECORDS SUMMARY | 2025-09-28 12:40 | XMS_ITS | Clinical Summary ---
Author Organization [facility] Prior to 02/04/[address] [place] [address] Care Team Providers Care Grain Elevator Worker Name Role Phone Juanita Sunshine MD Primary Care Provider [phone] Allergies Active Allergy Reactions Criticality Noted Date [...] age to complete this topic Care Teams Grain Elevator Worker Relationship Specialty Start Date End Date Juanita Sunshine MD [address] [place] [phone] PCP - General Internal Medicine 02/24/23
--- OUTSIDE RECORDS SUMMARY | 2025-09-28 12:40 | XMS_ITS | Clinical Summary ---
Author Organization [facility] Address [address] [place] [address] Phone Care Team Providers Care Woolen Suiting Shrinker Name Role Phone Dara Nilsa CALABRESE Primary Care Provider [phone] Allergies Active Allergy Reactions Criticality Noted Date Comments Penicillins Nausea Only 09/13/2025 Medications ibuprofen (ADVIL,MOTRIN) 200 mg tablet Take by mouth every 6 (six) hours if needed. Active Encounters Date Type Department Care Team Description 09/13/2025 1:45 PM EST Office Visit [facility] Hematology Oncology [address] [place] [phone] Jennifer Millard MD Follicular low grade B-cell lymphoma (CMS/HCC V24, CMS/HCC V28) (Primary Dx) 09/13/2025 1:40 PM EST Lab Draw Station - [address] [address] Follicular low grade B-cell lymphoma (CMS/HCC V24, CMS/HCC V28) from Last 3 Months Social History Tobacco Use Types Packs/Day Years Used Date Smoking Tobacco: Never Tobacco Cessation:Counseling Given: Not Answered Alcohol Use Standard Drinks/Week Comments Never 0 (1 standard drink = 0.6 oz pur e alcohol) Sex and Gender Information Value Date Recorded Sex Assigned at Not on file Legal Sex Male 6:05 PM EST Gender Identity Not on file Sexual Orientation Not on file Last Filed Vital Signs Vital Sign Reading Time Taken Comments Blood Pressure 134/81 09/13/2025 1:15 PM EST Pulse 58 09/13/2025 1:15 PM EST Temperature 36.4 C (97.6 F) 09/13/2025 1:15 PM EST Respiratory Rate - - Oxygen Saturation 98% 09/13/2025 1:15 PM EST Inhaled Oxygen Concentration - - Weight 92.5 kg (204 lb) 09/13/2025 1:15 PM EST Height 172.7 cm (5' 8 ) 08/25/2023 1:12 PM EST Body Mass Index 31.02 08/25/2023 1:12 PM EST Plan of Treatment Upcoming Encounters Date Type Department Care Team (Late st Contact Info) Description 07/17/2026 1:30 PM EST Office Visit [facility] Hematology Oncology [address] [place] [phone] Jennifer Millard MD [address] [place] [address] Health Maintenance Due Date Last Done Comments COVID-19 Vaccine (#1) 1955 DTaP,Tdap,and Td Vaccines (1 - Tdap) 1967 Zoster Vaccines (1 of 2) 1967 Pneumococcal Vaccine: 50+ Years (2 of 2 - PPSV23, PCV20, or PCV21) 08/01/2019 06/06/2019 Cholesterol Screening (Lipid Panel) 08/09/2022 Falls Risk Assessment 08/09/2022 Hepatitis C Screening 08/09/2022 Medicare Annual Wellness Visit 08/09/2022 Social Influencers of Health Screening 08/09/2022 RSV Immunization Adult Patients (1 - 1-dose 75+ series) 2023 Influenza Vaccine (#1) 2025 , 06/29/2019, 06/06/2019 Depression Screening 09/07/2025 HIB Vaccines Aged Out No longer eligi [...] to complete this topic RSV Immunization Patients Under 20 months Aged Out No longer eligible b ased on patient's age to complete this topic Varicella Vaccines Aged Out No longer eligible based on patient's age to complete this topic Procedures Procedure Name Priority Date/Time Associated Diagnosis Comments CBC WITH AUTO DIFFERENTIAL Routine 09/13/2025 1:35 PM EST Follicular low grade B-cell lymphoma ([facility] V24, [facility] V28) BETA 2 MICROGLOBULIN, SERUM Routine 09/13/2025 1:35 PM EST Follicular low grade B-cell lymphoma ([facility] V24, [facility] V28) LACTATE DEHYDROGENASE Routine 09/13/2025 1:35 PM EST Follicular low grade B-cell lymphoma ([facility] V24, [facility] V28) CBC AND DIFFERENTIAL Routine 09/13/2025 1:35 PM EST Follicular low grade B-cell lymphoma ([facility] V24, [facility] V28) from Last 3 Months Results * (ABNORMAL) CBC auto differential (09/13/2025 1:35 PM EST) WBC 6.8 4.8 - 10.8 K/mcL LAB HEMETOLOGY METHOD 09/13/2025 4:52 PM EST [facility] RBC 5.30 4.50 - 5.50 M/mcL LAB HEMETOLOGY METHOD 09/13/2025 4:52 PM EST [facility] Hemoglobin 13.8 13.5 - 17.5 g/dL LAB HEMETOLOGY METHOD 09/13/2025 4:52 PM EST [facility] Hematocrit 43.3 42.0 - 54.0 % LAB HEMETOLOGY METHOD 09/13/2025 4:52 PM [facility] MCV 81.1 79.0 - 98.0 FL LAB HEMETOLOGY METHOD 09/13/2025 4:52 PM [facility] MCH 25.8(L) 27.0 - 32.0 pcg LAB HEMETOLOGY METHOD 09/13/2025 4:52 PM [facility] MCHC 31.9(L) 32.0 - 37.0 g/dL LAB HEMETOLOGY METHOD 09/13/2025 4:52 PM [facility] RDW 14.9 11.0 - 15.0 % LAB HEMETOLOGY METHOD 09/13/2025 4:52 PM [facility] Platelets 300 130 - 400 K/mcL LAB HEMETOLOGY METHOD 09/13/2025 4:52 PM [facility] MPV 9.8 7.0 - 11.0 FL LAB HEMETOLOGY METHOD 09/13/2025 4:52 PM [facility] NRBC 0.0 <1.0 % LAB HEMETOLOGY METHOD 09/13/2025 4:52 PM [facility] NRBC Absolute 0.00 <0.10 K/mcL LAB HEMETOLOGY METHOD 09/13/2025 4:52 PM [facility] Neutrophils Relative 73.6 % LAB HEMETOLOGY METHOD 09/13/2025 4:52 PM [facility] Lymphocytes Relative 14.0 % LAB HEMETOLOGY METHOD 09/13/2025 4:52 PM [facility] Monocytes Relative 10.0 % LAB HEMETOLOGY METHOD 09/13/2025 4:52 PM [facility] Eosinophils Relative 1.8 % LAB HEMETOLOGY METHOD 09/13/2025 4:52 PM [facility] Basophils Relative 0.3 % LAB HEMETOLOGY METHOD 09/13/2025 4:52 PM EST [facility] Immature Granulocytes Relative 0.3 % LAB HEMETOLOGY METHOD 09/13/2025 4:52 PM EST [facility] Neutrophils Absolute 5.01 1.50 - 7.00 K/[facility] LAB HEMETOLOGY METHOD 09/13/2025 4:52 PM [facility] Lymphocytes Absolute 0.95(L) 1.00 - 5.00 K/mcL LAB HEMETOLOGY METHOD 09/13/2025 4:52 PM [facility] Monocytes Absolute 0.68 0.20 - 1.00 K/[facility] LAB HEMETOLOGY METHOD 09/13/2025 4:52 PM [facility] Eosinophils Absolute 0.12 0.00 - 0.50 K/mcL LAB HEMETOLOGY METHOD 09/13/2025 4:52 PM [facility] Basophils Absolute 0.02 0.00 - 0.20 K/[facility] LAB HEMETOLOGY METHOD 09/13/2025 4:52 PM [facility] Immature Granulocytes Absolute 0.02 0.00 - 0.03 K/mcL LAB HEMETOLOGY METHOD 09/13/2025 4:52 PM [facility] Blood Venous blood specimen / Unknown Venipuncture / Unknown 09/13/2025 1:35 PM EST 09/13/2025 4:40 PM EST Jennifer Millard MD LAB BLOOD ORDERABLES Final R esult [facility] [address] [place] [address], * Lactate dehydrogenase (09/13/2025 1:35 PM EST) LDH 198 120 - 246 unit/L 09/13/2025 5:21 PM EST [facility] Blood Venous blood specimen / Unknown Venipuncture / Unknown 09/13/2025 1:35 PM EST 09/13/2025 4:40 PM EST Jennifer Millard MD LAB BLOOD ORDERABLES Final R esult [facility] [address] [place] [address], [place] [phone] * (ABNORMAL) Beta 2 microglobulin, serum (09/13/2025 1:35 PM EST) Beta-2 Microglobulin 3.5(H) 1.0 - 2.4 mg/L 09/13/2025 5:21 PM EST [facility] Blood Venous blood specimen / Unknown Venipuncture / Unknown 09/13/2025 1:35 PM EST 09/13/2025 4:40 PM EST Jennifer Millard MD LAB BLOOD ORDERABLES Final R esult Performing Organization Address City/[facility]/ZIP Co de Phone Number [facility] [address] [place] [address], [place] [phone] from Last 3 Months Insurance [employer] Care Teams Woolen Suiting Shrinker Relationship Specialty Start Date End Date Nilsa Diamond PA [address] [place] [id number] PCP - General 09/13/25
== END 2025-08-21 00:01 ==
LOC: HO.HOSX
PROVIDERS: Visit Provider Physician Assistant
DX: M19.011 Primary osteoarthritis, right shoulder (principal); M19.012 Primary osteoarthritis, left shoulder
CPT/HCPCS: 20610; 73030; 99212; J0665; J1100; J2003

== ENCOUNTER 2025-08-21 14:45 | Outpatient (AMB) | payer MEDICARE, SELFPAY ==
--- OUTSIDE RECORDS SUMMARY | 2024-07-04 11:43 | XMS_ITS | Encounter Summary ---
Author Organization [facility] Address [address] [place] [address] Care Team Providers Care Computer Hardware Designer Name Role Phone Juanita Sunshine MD Primary Care Provider Unavailab le Encounter Details Date Type Department Care Team (Late st Contact Info) Description 07/04/2024 12:43 PM EDT Hospital Encounter TH HISTORIC ENCOUNTERS EASTERN CONVERSION ONLY Jennifer Millard MD [address] [place] [phone] Social History Tobacco Use Types Packs/Day Years Used Date Smoking Tobacco: Never Assessed Sex and Gender Information Value Date Recorded [...] 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 FAMILY HISTORY: Noncontributory No current outpatient medications on file. You are allergic to the following Date Reviewed: 07/04/2024 Allergen Reactions Penicillins Not Noted PHYSICAL EXAM: BP 143/83 (BP Location: Left arm) Pulse 74 Temp 97.8 ??F (36.6 ??C) (Temporal) Wt 93 kg (205lb) SpO2 97% BMI 31.17 kg/m?? ECOG 0 [...] documented in this encounter Plan of Treatment Not on file documented as of this encounter Procedures Procedure Name Priority Date/Time Associated Diagnosis Comments ..MISCELLANEOUS REFERENCE LAB TEST 07/04/2024 documented in this encounter Results * Miscellaneous reference lab test (07/04/2024) us Provider Onbase LAB BLOOD ORDERABLES Final Re sult documented in this encounter Visit Diagnoses Not on filedocumented in this encounter Care Teams Computer Hardware Designer Relationship Specialty Start Date End Date Juanita Sunshine MD PCP - General Internal Medicine 07/04/21 documented as of this encounter
--- NOTE | 2025-08-21 14:49 | A.OFFVIS_ITS ---
Intake Visit Reasons: NewProb-Lt shoulder pain Intake Note: Adolfo is a 75 year old right hand dominant male who presents today as an established patient, new problem visit to evaluate left shoulder pain. Patient previously seen for his right shoulder with Dr. Chung and was provided with an injection on 09/12/24. Today patient reports that he would like to discuss surgical intervention. He complains of pain in both of his shoulders, stating that are both equal in pain however he would like to discuss left shoulder. Limited ROM. Patient has tried and failed injections in the past. No relief with Tylenol, finds relief with use of ibuprofen. Allergies Penicillins Allergy (Intermediate, Verified 08/21/25 15:04) Nausea HPI Comments Details: History of Present Illness The patient is a 75-year-old male presenting with left shoulder pain. He reports that both shoulders have been bothering him, but he assumes the left is worse. The patient experiences difficulty with activities of daily living, such as applying deodorant, and has a hard time reaching with his left arm. His shoulder pain also disrupts his sleep, causing him to wake and change positions. He had a prior cortisone injection for the right shoulder with Dr Chung. The patient denies any history of diabetes. 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 - Activities: He cuts a lot of wood and trees. - Functional Status: He reports difficulty with activities of daily living, such as applying deodorant and using a brush in the shower. - Diet: The patient has been trying to eat foods like broccoli and oranges, and has started taking green tea in an effort to improve cartilage health. [facility] Medical History Postoperative nausea Cholelithiasis Aneurysm of gastroduodenal artery Lung nodule HTN (hypertension) Hx of deep venous thrombosis Bilateral shoulder pain Hyperlipidemia Low grade B-cell lymphoma Diverticulosis Self-catheterizes urinary bladder GERD (gastroesophageal reflux disease) BPH (benign prostatic hyperplasia) Anxiety and depression Numbness Osteoarthritis Surgical History History of uvulectomy Hx of colonoscopy Hx of umbilical hernia repair (~1994) History of left knee replacement Social History Household Members: None Housing: House Are you a primary lawn care professional to a significant other at home: No Do you presently have visiting nurse or other home services: No 75 years or older and lives alone: Yes Comment: aware of trip hazard Patient Tobacco Use Status: Never used Tobacco e-Cigarette/Vaping Use: Never Used service: No Current occupational status: employed 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 - Reports difficulty with overhead activities, reaching, and painful rotation. - Constitutional: Reports sleep disturbance due to pain. - Endocrine: Denies diabetes. Physical Exam Exam Exam: Physical Exam - Musculoskeletal: Examination of the left shoulder reveals the patient can achieve full forward elevation to bring his hand to the top of his head. - Internal rotation is preserved to the back pocket - External rotation is painful and limited to 45 Office Procedures AMB Joint Injection/Aspiration Joint Injection/Aspiration Primary Site: Right Shoulder Secondary Site: Left Shoulder Prep: site was prepped using aseptic technique, ethochloride spray was applied and injection warnings given Injected: 40 mg of, Decadron, with 3 mL of, 1% plain Lidocaine and 0.25% Bupivacaine Approach Used: posterolateral Procedure: The patient tolerated the procedure well and there was some relief with the local anesthesia Coding 00786 - Glenohumeral/Tronchanteric Bursa/Intraarticular Procedure code (CPT) selection complete Results Reviewed Results Reviewed: Xrays were obtained in the office today and personally reviewed by me of the left kunal show ghj and acj oa Assessment & Plan Assessment & Plan (1) Osteoarthritis of shoulders, bilateral: Code(s): M19.011 - Primary osteoarthritis, right shoulder; M19.012 - Primary osteoarthritis, left shoulder Category: Medical Plan Despite imaging findings, the patient maintains good functional motion, including the ability to bring his hand to his head. Treatment options discussed include cortisone injections, physical therapy, and eventual shoulder replacement. A shoulder replacement is not recommended at this time, as surgery is typically deferred until a patient can no longer bring their hand to their mouth or head, and there is a risk of losing his current range of motion post-operatively. The plan is to proceed with a cortisone injection in the office today for pain management. If this is not effective after 6-8 weeks, an intra-articular injection at the hospital or an MRI will be considered. Also recommended jakk-jue-ihbsswz collagen supplements for bone and joint health. Consent Treatment options for left shoulder arthritis, including cortisone injection, physical therapy, and shoulder replacement, were discussed with the patient. Alternatives, such as gel injections (not performed for shoulders in this office), were also mentioned. The patient agreed to proceed with a cortisone injection in the office today, understanding the [id number] approach to management. Consent was obtained from the patient for the procedure. Patient was informed and verbally consented to the use of an ambient scribe for clinic note documentation during this visit. Orders: Orders XR shoulder LT min 2V Today M25.512 - Pain in left shoulder Coding Level of Care Code Est Pt Level 3 (96189) Add On Problem Visit Only Diagnoses Osteoarthritis of shoulders, bilateral M19.011; M19.012 CPT Codes Coding - Joint 7: 93250 - Glenohumeral/Tronchanteric Bursa/Intraarticular ([id number])
--- OUTSIDE RECORDS SUMMARY | 2025-08-21 21:15 | XMS_ITS | Clinical Summary ---
Author Organization [facility] Prior to 02/04/[address] [place] [id number] Care Team Providers Care Commercial Production Editor Name Role Phone Juanita Sunshine MD Primary Care Provider [phone] Allergies Active Allergy Reactions Criticality Noted Date [...] Hepatitis C Screening 1950 COVID-19 Vaccine (#1) 1948 Depression Screening 1960 Preventative Health Evaluation 1966 DTap / Tdap / Td (1 - Tdap) 1967 Shingrix-Zoster Vaccine (1 o f 2) 1998 Fall Risk Assessment 2013 Pneumococcal Vaccine (2 of 2 - PPSV23 or PCV20) 06/06/2020 06/06/2019 RSV Adult > 60+ Yrs or (1 - 1-dose 75+ series) 2023 Influenza Vaccine (#1) 2025 1, 06/29/2019, 06/06/2019 Hepatitis B Vaccines Aged Out No long er eligible based on patient's age to complete this topic RSV Ped < 20 months Aged Out No longe r eligible based on patient's age to complete this topic Care Teams Commercial Production Editor Relationship Specialty Start Date End Date Juanita Sunshine MD [address] [place] [phone] PCP - General Internal Medicine 02/24/23
--- OUTSIDE RECORDS SUMMARY | 2025-08-21 21:15 | XMS_ITS | Clinical Summary ---
Author Organization [facility] Address [address] [place] [address] Phone Care Team Providers Care Italian Tutor Name Role Phone Juanita Sunshine MD Primary Care Provider Unavailab le Social History Tobacco Use Types Packs/Day Years Used Date Smoking Tobacco: Never Assessed Sex and Gender Information Value Date Recorded Sex Assigned at Not on file Legal Sex Male 6:05 PM EST Gender Identity Not on file Sexual Orientation Not on file Last Filed Vital Signs [...] Health Maintenance Due Date Last Done Comments DTaP,Tdap,and Td Vaccines (1 - Tdap) 1967 Pneumococcal Vaccine: 50+ Ye ars (1 of 1 - PCV) 1998 Zoster Vaccines (1 of 2) 1998 Cholesterol Screening (Lipid Panel) 08/09/2022 Falls Risk Assessment 08/09/2022 Hepatitis C Screening 08/09/2022 Medicare Annual Wellness Visit 08/09/2022 Social Influencers of Health Screening 08/09/2022 RSV Immunization Adult Patie nts (1 - 1-dose 75+ series) 2023 Depression Screening 09/07/2024 COVID-19 Vaccine (1 - 2024-2 6 season) 2025 Influenza Vaccine (#1) 2025 HIB Vaccines Aged [...] topic Insurance [employer] Care Teams Italian Tutor Relationship Specialty Start Date End Date Juanita Sunshine MD PCP - General Internal Medicine 07/04/21
== END 2025-08-21 16:14 | disposition home or self-care (01) ==
LOC: HO.HOS 14:46
PROVIDERS: Visit Provider Physician Assistant
DX: M19.011 Primary osteoarthritis, right shoulder (principal); M19.012 Primary osteoarthritis, left shoulder
CPT/HCPCS: 20610; 99213

== ENCOUNTER → 2025-08-21 14:48 | Outpatient (BNV) | payer MEDICARE, SELFPAY | PROVIDERS: Visit Provider Radiology Diagnostic Ultrasound | DX: M19.012 Primary osteoarthritis, left shoulder (principal); M25.812 Other specified joint disorders, left shoulder | CPT/HCPCS: 73030 ==